=== PATIENT | female | born 1970 | race Caucasian/White ===

== ENCOUNTER 2019-01-23 17:02 | Emergency (ER) | payer SELFPAY ==
[~2019-01-23] VITALS: Ht 165.1 cm; Wt 49.9 kg
--- NOTE | 2019-01-23 17:20 | ED Dyspnea ---
General Stated Complaint: SHAKING,SOB Source of Information: Patient, RN Notes Reviewed Exam Limitations: No Limitations (ZEKE MARIE DO) History of Present Illness Date Seen by Provider: January 23, 2019 Time Seen by Provider: 17:20 (ZEKE MARIE DO) Initial Comments Patient is a 48-year-old female presenting by private vehicle. She was at home and feeling anxious and short of breath. She had EMS come to her house earlier in the evaluated her for shortness of breath but at that time and refused to come. 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 However her boyfriend when they have brought her to the emergency department to be evaluated because she continued to complain of shortness of breath. She admits to drinking alcohol today and feeling anxious. She denies any drug use. She knows that she smokes a lot of tobacco. She does have a history of asthma as well as the anxiety. She felt like she couldn't take a deep breath. She denies any fever or chills. She has not had any nausea or vomiting. (MANDA ALEXIS MD) Allergies and Home Medications Allergies Coded Allergies: tramadol (Unverified Adverse Reaction, Unknown, 01/23/19) Uncoded Allergies: CONTRAST DYE (Adverse Reaction, Unknown, 01/23/19) ERYTHROMYCIN (Adverse Reaction, Unknown, 01/23/19) SULFA (Adverse Reaction, Unknown, 01/23/19) Patient Home Medication List Home Medication List Reviewed: Yes (MANDA ALEXIS MD) Review of Systems Review of Systems Constitutional: No chills, No diaphoresis, No fever EENTM: No ear discharge, No blurred vision, No nose congestion Respiratory: cough (smoker's cough); No dyspnea on exertion, No phlegm; short of breath; No stridor, No wheezing Cardiovascular: chest pain (tightness); No edema, No palpitations, No syncope Gastrointestinal: no symptoms reported; No abdominal pain, No nausea, No vomiting Genitourinary: no symptoms reported; No dysuria, No frequency Musculoskeletal: no symptoms reported Skin: no symptoms reported Psychiatric/Neurological: Anxiety Endocrine: No Symptoms Reported Hematologic/Lymphatic: No Symptoms Reported (MANDA ALEXIS MD) Past Oaikftl-Slbyoe-Mvzjxc Hx Past Med/Social Hx: Reviewed Nursing Past Med/Soc Hx (MANDA ALEXIS MD) Patient Social History Recent Foreign Travel: No Contact w/Someone Who Travel: No (ZEKE MARIE DO) Past Medical History Asthma Psychosocial: Yes (alcoholism) Anxiety (MANDA ALEXIS MD) Physical Exam Vital Signs Vital Signs - First Documented 01/23/19 17:08 Temp 98.0 Pulse 97 Resp 16 B/P (MAP) 136/93 (107) Pulse Ox 100 O2 Delivery Room Air (MANDA ALEXIS MD) Vital Signs Capillary Refill : (ZEKE MARIE DO) Height, Weight, BMI Height: '" Weight: lbs. oz. kg; BMI Method: (ZEKE MRAIE DO) General Appearance: No Apparent Distress, Thin, Other (appears older than stated age) HEENT: PERRL/EOMI, Other (poor dentition) Neck: Full Range of Motion, Normal Inspection, Non Tender, Supple Respiratory: Chest Non Tender, Lungs Clear, Normal Breath Sounds, No Accessory Muscle Use, No Respiratory Distress Cardiovascular: Regular Rate, Rhythm, Normal Peripheral Pulses Gastrointestinal: Normal Bowel Sounds, No Pulsatile Mass, Non Tender, Soft Rectal: Deferred Extremity: Normal Capillary Refill, Non Tender, No Calf Tenderness Neurologic/Psychiatric: Alert, Oriented x3 Skin: Normal Color, Warm/Dry (MANDA ALEXIS MD) Progress/Results/Core Measures Results/Orders Lab Results Laboratory Tests Test 01/23/19 17:20 01/23/19 17:52 Range/Units White Blood Count 6.7 4.3-11.0 10^3/uL Red Blood Count 3.11 L 4.35-5.85 10^6/uL Hemoglobin 10.2 L 11.5-16.0 G/DL Hematocrit 31 L 35-52 % Mean Corpuscular Volume 99 80-99 FL Mean Corpuscular Hemoglobin 33 25-34 PG Mean Corpuscular Hemoglobin Concent 33 32-36 G/DL Red Cell Distribution Width 13.7 10.0-14.5 % Platelet Count 133 130-400 10^3/uL Mean Platelet Volume 11.2 H 7.4-10.4 FL Neutrophils (%) (Auto) 57 42-75 % Lymphocytes (%) (Auto) 22 12-44 % Monocytes (%) (Auto) 17 H 0-12 % Eosinophils (%) (Auto) 2 0-10 % Basophils (%) (Auto) 1 0-10 % Neutrophils # (Auto) 3.8 1.8-7.8 X 10^3 Lymphocytes # (Auto) 1.5 1.0-4.0 X 10^3 Monocytes # (Auto) 1.2 H 0.0-1.0 X 10^3 Eosinophils # (Auto) 0.1 0.0-0.3 10^3/uL Basophils # (Auto) 0.1 0.0-0.1 10^3/uL Sodium Level 138 135-145 MMOL/L Potassium Level 4.1 3.6-5.0 MMOL/L Chloride Level 94 L 98-107 MMOL/L Carbon Dioxide Level 17 L 21-32 MMOL/L Anion Gap 27 H 5-14 MMOL/L Blood Urea Nitrogen 13 7-18 MG/DL Creatinine 1.09 0.60-1.30 MG/DL Estimat Glomerular Filtration Rate 53 BUN/Creatinine Ratio 12 Glucose Level 76 70-105 MG/DL Calcium Level 9.6 8.5-10.1 MG/DL Corrected Calcium 8.5-10.1 MG/DL Magnesium Level 1.7 L 1.8-2.4 MG/DL Total Bilirubin 1.5 H 0.1-1.0 MG/DL Aspartate Amino Transf (AST/SGOT) 72 H 5-34 U/L Alanine Aminotransferase (ALT/SGPT) 23 0-55 U/L Alkaline Phosphatase 79 40-136 U/L Troponin T 15 H <=10 NG/L Pro-B-Type Natriuretic Peptide 167.4 H <75.0 PG/ML Total Protein 7.8 6.4-8.2 GM/DL Albumin 4.7 H 3.2-4.5 GM/DL Lipase 36 8-78 U/L Serum Alcohol 288 H <10 MG/DL Smear Scan YES Urine Color DARK YELLOW Urine Clarity SL CLOUDY Urine pH 6.0 5-9 Urine Specific [place] 1.015 L 1.016-1.022 Urine Protein TRACE NEGATIVE Urine Glucose (UA) NEGATIVE NEGATIVE Urine Ketones 1+ H NEGATIVE Urine Nitrite NEGATIVE NEGATIVE Urine Bilirubin 1+ H NEGATIVE Urine Urobilinogen 4.0 NORMAL MG/DL Urine Leukocyte Esterase 2+ H NEGATIVE Urine RBC (Auto) NEGATIVE NEGATIVE Urine RBC NONE /HPF Urine WBC 25-50 H /HPF Urine Squamous Epithelial Cells 10-25 H /HPF Urine Crystals NONE /LPF Urine Bacteria LARGE H /HPF Urine Casts NONE /LPF Urine Mucus NEGATIVE /LPF Urine Culture Indicated YES Urine Opiates Screen NEGATIVE NEGATIVE Urine Oxycodone Screen NEGATIVE NEGATIVE Urine Methadone Screen NEGATIVE NEGATIVE Urine Propoxyphene Screen NEGATIVE NEGATIVE Urine Barbiturates Screen NEGATIVE NEGATIVE Ur Tricyclic Antidepressants Screen NEGATIVE NEGATIVE Urine Phencyclidine Screen NEGATIVE NEGATIVE Urine Amphetamines Screen POSITIVE H NEGATIVE Urine Methamphetamines Screen POSITIVE H NEGATIVE Urine Benzodiazepines Screen POSITIVE H NEGATIVE Urine Cocaine Screen NEGATIVE NEGATIVE Urine Cannabinoids Screen NEGATIVE NEGATIVE (MANDA ALEXIS MD) My Orders Orders - MANDA ALEXIS MD Thiamine Injection (Vitamin B-1 Injectio (01/23/19 18:13) (MANDA ALEXIS MD) Medications Given in ED Current Medications Medications Dose Ordered Sig/Artemio Route Start Time Stop Time Status Last Admin Dose Admin Lorazepam 1 mg ONCE ONCE IVP 01/23/19 17:45 01/23/19 17:46 DC 01/23/19 18:23 1 MG Sodium Chloride 1,000 ml ONCE ONCE IV 01/23/19 18:15 01/23/19 18:36 DC 01/23/19 18:23 1,000 ML Thiamine HCl 100 mg ONCE ONCE IV 01/23/19 18:15 01/23/19 19:09 DC 01/23/19 18:23 100 MG (MANDA ALEXIS MD) Vital Signs/I&O 01/23/19 17:08 Temp 98.0 Pulse 97 Resp 16 B/P (MAP) 136/93 (107) Pulse Ox 100 O2 Delivery Room Air (MANDA ALEXIS MD) Progress Progress Note #1: Time: 18:00 Progress Note I assumed care of the patient from Dr. Marie at shift change pending labs and CXR. She was getting IVF and a 1 mg IV dose of Ativan for her anxiety and sensation of shortness of breath. She has been saturating 100% on room air. Progress Note #2: Time: 19:30 Progress Note Labs all came back with stable CBC. Her chemistry did not show any evidence of acute cardiac disease. Her alcohol level was elevated to 0.288. Her urine drug screen was positive for methamphetamines and benzodiazepines. She had leukocyte esterase and bacteria in her urine but there are also epithelial cells. She denied any dysuria or evidence of a urinary tract infection so will defer treatment until culture results come back. In terms of the methamphetamines in her system she stated that she had been smoking cigarettes from a friend that rolls her own cigarettes. She states that she thinks that's where the methamphetamines had gotten into her system because she denies using them herself. Advised to avoid smoking cigarettes, especially from that friend, in the future. Counseled to follow up with [facility] mental [facility] about getting help to avoid drugs and alcohol. Continue on her regular medications. His not to drink alcohol or use drugs especially when she was responsible for her grandchildren (MANDA ALEXIS MD) Initial ECG Impression Date: January 23, 2019 Initial ECG Impression Time: 17:14 Initial ECG Rate: 94 Initial ECG Rhythm: Normal Sinus Comment Sinus rhythm with a heart rate of 94 bpm. NH interval 174 ms. QT interval of 422 ms and a QT corrected interval of 528 ms for a prolonged QT interval. No ST elevation. No prior tracing for comparison. (MANDA ALEXIS MD) Diagnostic Imaging Diagonstic Imaging: Xray Plain Films/CT/US/NM/MRI: chest Comments NAME: SYED LOGAN [facility] REC#: [id number] PT STATUS: REG ER : 1970 PHYSICIAN: ZEKE MARIE DO ADMIT DATE: 01/23/19/ER FS Signed Date of Exam:01/23/19 CHEST 1 VIEW AP/PA ONLY CHEST 1 VIEW AP/PA ONLY Indication: Shortness of breath Comparison: None available. Findings: No focal airspace disease in the visualized lungs. Calcified left midlung zone pulmonary nodule is compatible with old granulomatous infection. Please note that the posterior lower lobes are poorly evaluated by portable radiography. No pleural effusion or pneumothorax. Normal cardiomediastinal silhouette. Impression: No acute cardiopulmonary process by portable radiography. Dictated by: Dictated on workstation # [id number] Dict: 01/23/191813 Trans: 01/23/191814 [facility] [id number] Interpreted by: ARPIT RESENDEZ MD Electronically signed by: ARPIT RESENDEZ MD 01/23/191814 Reviewed: Reviewed by Me (and radiologist reading) (MANDA ALEXIS MD) Departure Impression Primary Impression: Anxiety Additional Impressions: Methamphetamine abuse Alcohol intoxication Qualified Codes: F10.920 - Alcohol use, unspecified with intoxication, uncomplicated Shortness of breath Disposition: 01 HOME, SELF-CARE Condition: Stable Departure-Patient Inst. Decision time for Depature: 19:14 (MANDA ALEXIS MD) Referrals: NO,LOCAL PHYSICIAN (PCP) Primary Care Physician Patient Instructions: Alcohol Abuse and Alcoholism (DC), Anxiety, Adult (DC), Methamphetamine, Polysubstance Abuse (DC) Add. Discharge Instructions: Do not use drugs such as methamphetamines and do not drink alcohol Follow up with clinic for continued concerns. See [facility] or [facility] for resources to help with anxiety, drug abuse and alcohol abuse. ZEKE MARIE DO January 23, 2019 17:20 MANDA ALEXIS MD January 23, 2019 18:38
[2019-01-23] MEDS ORDERED: LORazepam INJ 2 MG/ML (ATIVAN) VIAL IVP ONE (17:45)
[2019-01-23 17:53] LABS: HEMATOCRIT 31 % (35-52); HEMOGLOBIN 10.2 G/DL (11.5-16.0); MEAN CORPUSCULAR HEMOGLOBIN 33 PG (25-34); MEAN CORPUSCULAR HGB CONC 33 G/DL (32-36); MEAN CORPUSCULAR VOLUME 99 FL (80-99); MEAN PLATELET VOLUME 11.2 FL (7.4-10.4); PLATELET COUNT 133 10^3/uL (130-400); RED CELL DISTRIBUTION WIDTH 13.7 % (10.0-14.5); WHITE BLOOD COUNT 6.7 10^3/uL (4.3-11.0)
[2019-01-23 17:54] LABS: BASOPHILS # (AUTO) 0.1 10^3/uL (0.0-0.1); BASOPHILS % (AUTO) 1 % (0-10); EOSINOPHILS # (AUTO) 0.1 10^3/uL (0.0-0.3); EOSINOPHILS % (AUTO) 2 % (0-10); LYMPHOCYTES # (AUTO) 1.5 X 10^3 (1.0-4.0); LYMPHOCYTES % (AUTO) 22 % (12-44); MONOCYTES # (AUTO) 1.2 X 10^3 (0.0-1.0); MONOCYTES % (AUTO) 17 % (0-12); NEUTROPHILS # (AUTO) 3.8 X 10^3 (1.8-7.8); NEUTROPHILS % (AUTO) 57 % (42-75); SMEAR SCAN COMMENT YES
[2019-01-23 17:57] LABS: CHLORIDE 94 MMOL/L (98-107); POTASSIUM 4.1 MMOL/L (3.6-5.0); SODIUM 138 MMOL/L (135-145)
[2019-01-23 17:58] LABS: ALKALINE PHOSPHATASE 79 U/L (40-136); BILIRUBIN,TOTAL 1.5 MG/DL (0.1-1.0); BUN/CREATININE RATIO 12; CALCIUM 9.6 MG/DL (8.5-10.1); CARBON DIOXIDE 17 MMOL/L (21-32); CREATININE SERUM 1.09 MG/DL (0.60-1.30); GFR ESTIMATED 53; GLUCOSE 76 MG/DL (70-105); MAGNESIUM 1.7 MG/DL (1.8-2.4)
[2019-01-23 17:59] LABS: ALANINE AMINOTRANSFERASE 23 U/L (0-55); ALBUMIN 4.7 GM/DL (3.2-4.5); TOTAL PROTEIN 7.8 GM/DL (6.4-8.2)
[2019-01-23 18:00] LABS: LIPASE 36 U/L (8-78)
[2019-01-23 18:13] LABS: AMPHETAMINE SCREEN, URINE POSITIVE (NEGATIVE); BENZODIAZEPINES SCREEN URINE POSITIVE (NEGATIVE); COCAINE SCREEN URINE NEGATIVE (NEGATIVE); METHAMPHETAMINE SCREEN URINE S POSITIVE (NEGATIVE)
[2019-01-23] MEDS ORDERED: THIAMINE 100 MG/ML 2 ML (VITAMIN B-1) VIAL ONE (18:13)
[2019-01-23] MEDS ORDERED: NS IV 1000 ML 1,000 ML ONE (18:13)
[2019-01-23 18:14] LABS: BARBITURATE SCREEN URINE NEGATIVE (NEGATIVE); CANNABINOID SCREEN, URINE NEGATIVE (NEGATIVE); CLARITY,URINE SL CLOUDY; COLOR,URINE DARK YELLOW; GLUCOSE, URINE (UA) NEGATIVE (NEGATIVE); KETONES,URINE 1+ (NEGATIVE); METHADONE STAT NEGATIVE (NEGATIVE); NITRITE,URINE NEGATIVE (NEGATIVE); OPIATE SCREEN URINE NEGATIVE (NEGATIVE); OXYCODONE STAT NEGATIVE (NEGATIVE); PROPOXYPHENE STAT NEGATIVE (NEGATIVE); PROTEIN,URINE TRACE (NEGATIVE); TRICYCLIC ANTIDEPRESSANTS SCRE NEGATIVE (NEGATIVE)
[2019-01-23 18:15] LABS: BACTERIA,URINE LARGE /HPF; BILIRUBIN,URINE 1+ (NEGATIVE); LEUKOCYTE ESTERASE ,URINE 2+ (NEGATIVE); WBC,URINE 25-50 /HPF
[2019-01-23] MEDS ORDERED: NS 1000 ML IV BAG IV ONE (18:15)
[2019-01-23] MEDS ORDERED: THIAMINE 100 MG/ML 2 ML (VITAMIN B-1) VIAL IV ONE (18:15)
--- NOTE | 2019-01-23 18:17 | Diagnostic Imaging Report ---
CHEST 1 VIEW AP/PA ONLY Indication: Shortness of breath Comparison: None available. Findings: No focal airspace disease in the visualized lungs. Calcified left midlung zone pulmonary nodule is compatible with old granulomatous infection. Please note that the posterior lower lobes are poorly evaluated by portable radiography. No pleural effusion or pneumothorax. Normal cardiomediastinal silhouette. Impression: No acute cardiopulmonary process by portable radiography. Dictated by: Dictated on workstation # [id number]
--- NOTE | 2019-01-23 18:23 | NUR ---
PT GIVEN MEDS PER eMAR. PT THANKING RN FOR GETTING AN ANTI-ANXIETY MED. EXPLAINED THE DR WOULD FIRST LIKE TO CHECK PT'S CARDIAC/MEDICAL WORK-UP AND A CONCERN FOR SMELL OF ETOH TO CHECK BEFORE ADMINISTERING MEDS THAT COULD BE ENHANCED OR ALTER HER MENTATION. PT ASKS HER ETOH LEVEL AND REPORTED TO HER. PT ASKS IF THE LEVEL 288 IS HIGH? PT REPORTS SHE IS SO CONCERNED TO NOT HAVE HER SON KNOW ABOUT HER DRINKING SHE IS BABYSITTING 5 GRANDKIDS. PT STATES SHE DIDN'T CALL 911 BUT HER BOYFRIEND DID SHE REALLY THOUGHT SHE COULD NOT BREATHE COMM[facility]ITY CENTER DIRECTOR. SHE HAS A DGT IN LAW AT WORK AND THE SON IS IN [employer] WORKING. SHE WANTED TO WAIT TILL THEY WERE HOME BEFORE COMING BUT FELT MORE AND MORE LIKE SHE COULD NOT BREATHE. PT TEACHING ABOUT THE POTENTIAL FOR ADVERSE EVENTS/EFFECTS OF MIXING MEDS WITH ETOH (POLYSUBSTANCE).
[2019-01-23 19:43] VITALS: BP 109/73
== END 2019-01-23 19:43 | disposition home or self-care (01) ==
LOC: ER FS 17:04
DX: F41.9 Anxiety disorder, unspecified (principal); F15.10 Other stimulant abuse, uncomplicated; F10.229 Alcohol dependence with intoxication, unspecified; J45.909 Unspecified asthma, uncomplicated; F17.200 Nicotine dependence, unspecified, uncomplicated; Z88.6 Allergy status to analgesic agent; Z91.041 Radiographic dye allergy status; Z88.2 Allergy status to sulfonamides
CPT/HCPCS: 36415; 71045; 80053; 80306; 80320; 81000; 83690; 83735; 83880; 84484; 85025; 87088

== ENCOUNTER 2019-03-08 07:23 | Emergency (ER) | payer SELFPAY ==
[~2019-03-08] VITALS: Ht 165.1 cm; Wt 46.3 kg
--- OUTSIDE RECORDS SUMMARY | 2019-03-08 07:27 | XMS REPORT | Continuity of Care Document ---
Author Organization Unknown Address Unknown Allergies Active Description Code Type Severity Reaction Onset Reported/Identified Relationship to Patient Clinical Status Yes CONTRAST DYE CONTRAST DYE Unknown N/A 01/23/2019 Yes ERYTHROMYCIN ERYTHROMYCIN Unknown N/A 01/23/2019 Yes SULFA SULFA Unknown N/A 01/23/2019 Yes tramadol [id number] Drug Allergy Unknown N/A 01/23/2019 Medications There is no data. Problems There is no data. Procedures There is no data. Results Test Result Range Complete blood count (CBC) with automated white blood cell (WBC) differential - 01/23/19 17:20 Blood leukocytes automated count (number/volume) 6.7 10*3/uL 4.3-11.0 Blood erythrocytes automated count (number/volume) 3.11 10*6/uL 4.35-5.85 Venous blood hemoglobin measurement (mass/volume) 10.2 g/dL 11.5-16.0 Blood hematocrit (volume fraction) 31 % 35-52 Automated erythrocyte mean corpuscular volume 99 [foz_us] 80-99 Automated erythrocyte mean corpuscular hemoglobin (mass per erythrocyte) 33 pg 25-34 Automated erythrocyte mean corpuscular hemoglobin concentration measurement (mass/volume) 33 g/dL 32-36 Automated erythrocyte distribution width ratio 13.7 % 10.0- 14.5 Automated blood platelet count (count/volume) 133 10*3/uL 130-400 Automated blood platelet mean volume measurement 11.2 [foz_us] 7.4-10.4 Automated blood neutrophils/100 leukocytes 57 % 42-75 Automated blood lymphocytes/100 leukocytes 22 % 12-44 Blood monocytes/100 leukocytes 17 % 0-12 Automated blood eosinophils/100 leukocytes 2 % 0-10 Automated blood basophils/100 leukocytes 1 % 0-10 Blood neutrophils automated count (number/volume) 3.8 10*3 1.8-7.8 Blood lymphocytes automated count (number/volume) 1.5 10*3 1.0-4.0 Blood monocytes automated count (number/volume) 1.2 10*3 0.0- 1.0 Automated eosinophil count 0.1 10*3/uL 0.0-0.3 Automated blood basophil count (count/volume) 0.1 10*3/uL 0.0-0.1 Blood blood smear finding identification by light microscopy YES NR Comprehensive metabolic panel - 01/23/19 17:20 Serum or plasma sodium measurement (moles/volume) 138 mmol/L 135-145 Serum or plasma potassium measurement (moles/volume) 4.1 mmol/L 3.6-5.0 Serum or plasma chloride measurement (moles/volume) 94 mmol/L 98-107 Carbon dioxide 17 mmol/L 21-32 Serum or plasma anion gap determination (moles/volume) 27 mmol/L 5-14 Serum or plasma urea nitrogen measurement (mass/volume) 13 mg/dL 7-18 Serum or plasma creatinine measurement (mass/volume) 1.09 mg/dL 0.60-1.30 Serum or plasma urea nitrogen/creatinine mass ratio 12 NR Serum or plasma creatinine measurement with calculation of estimated glomerular filtration rate 53 [facility] Serum or plasma glucose measurement (mass/volume) 76 mg/dL 70-105 Serum or plasma calcium measurement (mass/volume) 9.6 mg/dL 8.5-10.1 Serum or plasma total bilirubin measurement (mass/volume) 1.5 mg/dL 0.1-1.0 Serum or plasma alkaline phosphatase measurement (enzymatic activity/volume) 79 U/L 40-136 Serum or plasma aspartate aminotransferase measurement (enzymatic activity/volume) 72 U/L 5-34 Serum or plasma alanine aminotransferase measurement (enzymatic activity/volume) 23 U/L 0-55 Serum or plasma protein measurement (mass/volume) 7.8 g/dL 6.4-8.2 Serum or plasma albumin measurement (mass/volume) 4.7 g/dL 3.2-4.5 Magnesium - 01/23/19 17:20 Magnesium 1.7 mg/dL 1.8-2.4 TROPONIN T - 01/23/19 17:20 TROPONIN T 15 % <=10 PROBNP FS - 01/23/19 17:20 PROBNP FS 167.4 pg/mL <75.0 Lipase - 01/23/19 17:20 Lipase 36 U/L 8-78 Serum or plasma ethanol measurement (mass/volume) - 01/23/19 17:20 Serum or plasma ethanol measurement (mass/volume) 288 mg/dL <10 Urine drug screening test - 01/23/19 17:52 Urine phencyclidine detection by screening method NEGATIVE NEGATIVE Urine benzodiazepines detection by screening method POSITIVE NEGATIVE Urine cocaine detection NEGATIVE NEGATIVE Urine amphetamines detection by screening method POSITIVE NEGATIVE Urine methamphetamine detection by screening method POSITIVE NEGATIVE Urine cannabinoids detection by screening method NEGATIVE NEGATIVE Urine opiates detection by screening method NEGATIVE NEGATIVE Urine barbiturates detection NEGATIVE NEGATIVE Screening urine tricyclic antidepressants detection NEGATIVE NEGATIVE Urine methadone detection by screening method NEGATIVE NEGATIVE Urine oxycodone detection NEGATIVE NEGATIVE Urine propoxyphene detection NEGATIVE NEGATIVE Complete urinalysis with reflex to culture - 01/23/19 17:52 Urine color determination DARK YELLOW NRG Urine clarity determination SL CLOUDY NRG Urine pH measurement by test strip 6.0 5-9 Specific gravity of urine by test strip 1.015 1.016-1.022 Urine protein assay by test strip, semi-quantitative TRACE NEGATIVE Urine glucose detection by automated test strip NEGATIVE NEGATIVE Erythrocytes detection in urine sediment by light microscopy NEGATIVE NEGATIVE Urine ketones detection by automated test strip 1+ NEGATIVE Urine nitrite detection by test strip NEGATIVE NEGATIVE Urine total bilirubin detection by test strip 1+ NEGATIVE Urine urobilinogen measurement by automated test strip (mass/volume) 4.0 mg/dL NORMAL Urine leukocyte esterase detection by dipstick 2+ NEGATIVE Automated urine sediment erythrocyte count by microscopy (number/high power field) NONE NRG Automated urine sediment leukocyte count by microscopy (number/high power field) [HPF] NRG Bacteria detection in urine sediment by light microscopy LARGE NRG Squamous epithelial cells detection in urine sediment by light microscopy 10-25 NRG Crystals detection in urine sediment by light microscopy NONE NRG Casts detection in urine sediment by light microscopy NONE NRG Mucus detection in urine sediment by light microscopy NEGATIVE NRG Complete urinalysis with reflex to culture YES NRG Bacterial urine culture - 01/23/19 17:52 Bacterial urine culture 3 OR MORE NRG COLONY COUNT >100,000/ML NRG FTX;REPORTABLE GRAM POSITIVES, SUGGESTING PROBABLE NRG FREE TEXT ENTRY 2 COLLECTION CONTAMINATION WITH SKIN NRG FREE TEXT ENTRY 3 JOI. NO SUSCEPTIBILITY PERFORMED. NRG Encounters ACCT No. Visit Date/Time Discharge Status Pt. Type Provider Facility Loc./Unit Complaint [id number] 01/23/2019 17:04:00 01/23/2019 19:43:00 DIS Emergency REUBEN GALINDO, MANDA [facility] ER FS SHAKING,SOB
[2019-03-08] MEDS ORDERED: FAMOTIDINE 20MG/2ML IV (PEPCID) IV STA (07:41)
--- NOTE | 2019-03-08 07:48 | ED Abdominal Pain ---
General Chief Complaint: Abdominal/GI Problems Stated Complaint: ABD PAIN,CHEST PAIN Nursing Triage Note: Patient c/o left sided abdominal pain, left sided chest pain, and bilateral lower back pain. States that the pain began about 3 days ago. Sepsis Screen: No Definite Risk History of Present Illness Date Seen by Provider: Mar 08, 2019 Time Seen by Provider: 07:35 Initial Comments 48-year-old female presents with abdominal pain. She states that she's been h aving it for 3 days. That is in her left upper and lower abdomen kind of wraps around her bilateral lower back she also complains of some occasional pain that goes up to her left side of her chest. She reports she has issues with constipation and yesterday he only has a very hard pebbly-like stool. She reports that she's been having issues with constipation on and off for a couple weeks. She denies any fever, chills, nausea or vomiting. She denies any shortness of breath or diaphoresis. Allergies and Home Medications Allergies Coded Allergies: tramadol (Unverified Adverse Reaction, Unknown, 01/23/19) Uncoded Allergies: CONTRAST DYE (Adverse Reaction, Unknown, 01/23/19) ERYTHROMYCIN (Adverse Reaction, Unknown, 01/23/19) SULFA (Adverse Reaction, Unknown, 01/23/19) Home Medications Ondansetron 4 Mg Tab.rapdis, 4 MG PO Q6H PRN for NAUSEA/VOMITING-1ST LINE Prescribed by: BRENNAN GOVEA on 03/08/19 0939 [morphine ] , 15 MG PO Q12H PRN for pain Prescribed by: BRENNAN GOVEA on 03/08/19 0939 Patient Home Medication List Home Medication List Reviewed: Yes Review of Systems Review of Systems Constitutional: No chills, No fever EENTM: No Symptoms Reported Respiratory: Denies Cough, Denies Shortness of Air Cardiovascular: See HPI; Denies Irregular Heart Rate, Denies Lightheadedness Gastrointestinal: Denies Abdomen Distended; Abdominal Pain, Constipated; Denies Diarrhea, Denies Nausea Genitourinary: No Symptoms Reported Musculoskeletal: see HPI Skin: no symptoms reported Psychiatric/Neurological: No Symptoms Reported Past Pqqgpqs-Jmfvvv-Uuboft Hx Past Med/Social Hx: Reviewed Nursing Past Med/Soc Hx Patient Social History Alcohol Beverage of Choice: Beer Type Used: Cigarettes Recent Foreign Travel: No Contact w/Someone Who Travel: No Recent Infectious Disease Expo: No Recent Hopitalizations: No Seasonal Allergies Seasonal Allergies: No Past Medical History Surgeries: Yes (RHINOPLASTY) Tubal Ligation Respiratory: Yes (TOBACCOISM) Asthma Cardiac: Yes Hypertension 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 oz. 46.973493pi; BMI Method:Stated General Appearance: WD/WN, no apparent distress HEENT: PERRL/EOMI, normal ENT inspection Neck: non-tender, full range of motion Respiratory: chest non-tender, lungs clear, no respiratory distress Cardiovascular: normal peripheral pulses, regular rate, rhythm, no edema Gastrointestinal: No abnormal bowel sounds, No distended, No guarding, No rebound; tenderness (Left abdomen both upper and lower quadrant) Extremities: normal range of motion, non-tender Back: normal inspection, no vertebral tenderness, CVA tenderness (R) (Mild), CVA tenderness (L) (Mild) Progress/Results/Core Measures Results/Orders Lab Results Laboratory Tests Test 03/08/19 07:35 03/08/19 08:18 Range/Units White Blood Count 5.1 4.3-11.0 10^3/uL Red Blood Count 3.65 L 4.35-5.85 10^6/uL Hemoglobin 12.0 11.5-16.0 G/DL Hematocrit 36 35-52 % Mean Corpuscular Volume 99 80-99 FL Mean Corpuscular Hemoglobin 33 25-34 PG Mean Corpuscular Hemoglobin Concent 33 32-36 G/DL Red Cell Distribution Width 12.9 10.0-14.5 % Platelet Count 132 130-400 10^3/uL Mean Platelet Volume 10.0 7.4-10.4 FL Neutrophils (%) (Auto) 59 42-75 % Lymphocytes (%) (Auto) 23 12-44 % Monocytes (%) (Auto) 15 H 0-12 % Eosinophils (%) (Auto) 3 0-10 % Basophils (%) (Auto) 1 0-10 % Neutrophils # (Auto) 3.0 1.8-7.8 X 10^3 Lymphocytes # (Auto) 1.2 1.0-4.0 X 10^3 Monocytes # (Auto) 0.8 0.0-1.0 X 10^3 Eosinophils # (Auto) 0.1 0.0-0.3 10^3/uL Basophils # (Auto) 0.0 0.0-0.1 10^3/uL Sodium Level 142 135-145 MMOL/L Potassium Level 3.7 3.6-5.0 MMOL/L Chloride Level 98 98-107 MMOL/L Carbon Dioxide Level 26 21-32 MMOL/L Anion Gap 18 H 5-14 MMOL/L Blood Urea Nitrogen 7 7-18 MG/DL Creatinine 0.64 0.60-1.30 MG/DL Estimat Glomerular Filtration Rate > 60 BUN/Creatinine Ratio 11 Glucose Level 95 70-105 MG/DL Calcium Level 9.3 8.5-10.1 MG/DL Corrected Calcium 9.1 8.5-10.1 MG/DL Total Bilirubin 0.9 0.1-1.0 MG/DL Aspartate Amino Transf (AST/SGOT) 42 H 5-34 U/L Alanine Aminotransferase (ALT/SGPT) 17 0-55 U/L Alkaline Phosphatase 100 40-136 U/L Total Protein 7.7 6.4-8.2 GM/DL Albumin 4.3 3.2-4.5 GM/DL Lipase 920 H 8-78 U/L Serum Alcohol 217 H <10 MG/DL Urine Color DARK YELLOW Urine Clarity SLT CLOUDY Urine pH 6.0 5-9 Urine Specific [place] 1.020 1.016-1.022 Urine Protein 1+ H NEGATIVE Urine Glucose (UA) NEGATIVE NEGATIVE Urine Ketones TRACE H NEGATIVE Urine Nitrite NEGATIVE NEGATIVE Urine Bilirubin 1+ H NEGATIVE Urine Urobilinogen 1.0 NORMAL MG/DL Urine Leukocyte Esterase TRACE H NEGATIVE Urine RBC (Auto) NEGATIVE NEGATIVE Urine RBC NONE /HPF Urine WBC 5-10 H /HPF Urine Squamous Epithelial Cells 10-25 H /HPF Urine Crystals NONE /LPF Urine Bacteria LARGE H /HPF Urine Casts PRESENT /LPF Urine Hyaline Casts 0-2 H /LPF Urine Mucus SMALL H /LPF Urine Culture Indicated YES My Orders Orders - BRENNAN GOVEA DO Comprehensive Metabolic Panel (03/08/19 07:41) Lipase (03/08/19 07:41) Ua Culture If Indicated (03/08/19 07:41) Ed Iv/Invasive Line Start (03/08/19 07:41) Acute Abd Series (03/08/19 07:41) Cbc With Automated Diff (03/08/19 07:41) Famotidine Injection (Pepcid Injection) (03/08/19 07:41) Ekg Tracing (03/08/19 07:30) Ns Iv 1000 Ml (Sodium Chloride 0.9%) (03/08/19 08:34) Morphine Injection (Morphine Injection (03/08/19 08:45) Urine Culture (03/08/19 08:18) Ct Abdomen/Pelvis Wo (03/08/19 08:34) Alcohol (03/08/19 08:41) Medications Given in ED Current Medications Medications Dose Ordered Sig/Artemio Route Start Time Stop Time Status Last Admin Dose Admin Morphine Sulfate 2 mg ONCE ONCE IVP 03/08/19 08:45 03/08/19 08:46 DC 03/08/19 08:49 2 MG Vital Signs/I&O 03/08/19 07:26 Temp 98.9 Pulse 110 Resp 18 B/P (MAP) 157/97 (117) Pulse Ox 100 O2 Delivery Room Air Blood Pressure Mean: 117 Progress Progress Note : Progress Note I reviewed labs and imaging with patient. Patient admits to drinking alcohol daily. She also reports that she has a history of pancreatitis but didn't think that this was it. Patient was offered admission versus a trial of outpatient therapy. Patient reports she would rather try to go home. She'll use a clear liquid diet for 24-48 hours. She will then advance as tolerated. She should return to the ER or her primary as needed or if symptoms worsen. She will be discharged home in stable condition. Initial ECG Impression Date: Mar 08, 2019 Initial ECG Impression Time: 07:30 Initial ECG Rate: 107 Initial ECG Rhythm: S.Tach Initial ECG Intervals: QT (510 ms ) Initial ECG Intervals Sinus tach, prolonged QT Departure Impression Primary Impression: Pancreatitis Qualified Codes: K85.20 - Alcohol induced acute pancreatitis without necrosis or infection Disposition: 01 HOME, SELF-CARE Condition: Stable Departure-Patient Inst. Decision time for Depature: 09:34 Referrals: NO,LOCAL PHYSICIAN (PCP) Primary Care Physician Patient Instructions: Pancreatitis (DC) Add. Discharge Instructions: Clear liquid diet for the next 24-36 hours and then may slowly advance diet. Tylenol and ibuprofen as needed for pain. I do recommend you consider stopping alcohol use. All discharge instructions reviewed with patient and/or family. Voiced understanding. Scripts Ondansetron (Ondansetron Odt) 4 Mg Tab.rapdis 4 MG PO Q6H PRN for NAUSEA/VOMITING-1ST LINE, #20 TAB Prov: BRENNAN GOVEA DO 03/08/19 [morphine ] No Conflict Check 15 MG PO Q12H PRN for pain, #5 Prov: BRENNAN GOVEA DO 03/08/19 BRENNAN GOVEA DO Mar 08, 2019 07:48
[2019-03-08 07:50] LABS: HEMATOCRIT 36 % (35-52); MEAN CORPUSCULAR HEMOGLOBIN 33 PG (25-34); MEAN CORPUSCULAR HGB CONC 33 G/DL (32-36); MEAN CORPUSCULAR VOLUME 99 FL (80-99); PLATELET COUNT 132 10^3/uL (130-400); RED CELL DISTRIBUTION WIDTH 12.9 % (10.0-14.5); WHITE BLOOD COUNT 5.1 10^3/uL (4.3-11.0)
[2019-03-08 07:51] LABS: BASOPHILS % (AUTO) 1 % (0-10); EOSINOPHILS # (AUTO) 0.1 10^3/uL (0.0-0.3); EOSINOPHILS % (AUTO) 3 % (0-10); LYMPHOCYTES # (AUTO) 1.2 X 10^3 (1.0-4.0); LYMPHOCYTES % (AUTO) 23 % (12-44); MONOCYTES # (AUTO) 0.8 X 10^3 (0.0-1.0); MONOCYTES % (AUTO) 15 % (0-12); NEUTROPHILS % (AUTO) 59 % (42-75)
--- NOTE | 2019-03-08 08:12 | Diagnostic Imaging Report ---
INDICATION: Abdominal pain. Comparison made with prior examination 01/23/2019. FINDINGS: The heart size is normal. Mediastinum is unremarkable. There is calcified granuloma in the left midlung. There is no pleural effusion, pneumothorax or pneumonia. Mediastinum is unremarkable. The bowel gas pattern is nonspecific. There is no free air. There are no abnormal abdominal calcifications. There are surgical clips in the pelvis. IMPRESSION: No acute cardiopulmonary abnormality. Nonspecific bowel gas pattern. Dictated by: Dictated on workstation # [id number]
[2019-03-08 08:21] LABS: ALKALINE PHOSPHATASE 100 U/L (40-136); BILIRUBIN,TOTAL 0.9 MG/DL (0.1-1.0); BUN/CREATININE RATIO 11; CALCIUM 9.3 MG/DL (8.5-10.1); CARBON DIOXIDE 26 MMOL/L (21-32); CHLORIDE 98 MMOL/L (98-107); CREATININE SERUM 0.64 MG/DL (0.60-1.30); GFR ESTIMATED > 60; GLUCOSE 95 MG/DL (70-105); POTASSIUM 3.7 MMOL/L (3.6-5.0); SODIUM 142 MMOL/L (135-145)
[2019-03-08 08:22] LABS: ALANINE AMINOTRANSFERASE 17 U/L (0-55); ALBUMIN 4.3 GM/DL (3.2-4.5); LIPASE 920 U/L (8-78); TOTAL PROTEIN 7.7 GM/DL (6.4-8.2)
[2019-03-08] MEDS ORDERED: NS IV 1000 ML 1,000 ML IV SCH (08:34)
[2019-03-08 08:36] LABS: CLARITY,URINE SLT CLOUDY; COLOR,URINE DARK YELLOW; GLUCOSE, URINE (UA) NEGATIVE (NEGATIVE); KETONES,URINE TRACE (NEGATIVE); PROTEIN,URINE 1+ (NEGATIVE)
[2019-03-08 08:37] LABS: BACTERIA,URINE LARGE /HPF; BILIRUBIN,URINE 1+ (NEGATIVE); LEUKOCYTE ESTERASE ,URINE TRACE (NEGATIVE); NITRITE,URINE NEGATIVE (NEGATIVE)
[2019-03-08 08:38] LABS: HYALINE CASTS, URINE 0-2 /LPF
[2019-03-08] MEDS ORDERED: morphine INJ 10 MG/ML 1ML (SYR OR VIAL) IVP ONE (08:45)
--- NOTE | 2019-03-08 09:16 | Diagnostic Imaging Report ---
PROCEDURE: CT abdomen and pelvis without contrast. TECHNIQUE: Multiple contiguous axial images were obtained through the abdomen and pelvis without the use of intravenous contrast. Auto Exposure Controls were utilized during the CT exam to meet ALARA standards for radiation dose reduction. INDICATION: Abdominal pain. History of pancreatitis. FINDINGS: The heart size is normal. The lung bases are clear. The liver is normal in size without focal lesions. Gallbladder is unremarkable. There is no biliary ductal dilatation. Spleen is normal. There is some questionable minimal inflammatory change about the pancreas. The adrenal glands are unremarkable. The kidneys are normal in appearance. There is atherosclerotic calcification of the aorta. The bowel gas pattern is nonspecific. There is some mucosal thickening in the right colon. Some degree of colitis cannot be excluded. There is no free air. There is no ascites. There are no focal inflammatory changes. There is no pelvic mass, adenopathy or free fluid. The osseous structures are unremarkable. IMPRESSION: 1. Questionable mild inflammatory change about the pancreas. Mild pancreatitis cannot be excluded. 2. Mucosal thickening in the right colon and proximal transverse colon. Some degree of colitis cannot be excluded. Recommend clinical correlation. 3. Otherwise unremarkable noncontrast CT abdomen and pelvis. Dictated by: Dictated on workstation # [id number]
[2019-03-08] MEDS ORDERED: morphine PO (09:39)
[2019-03-08] MEDS ORDERED: ONDA4TAB11 PO (09:39)
[2019-03-08 10:00] VITALS: BP 154/96
== END 2019-03-08 10:00 | disposition home or self-care (01) ==
LOC: EDUNIT# 07:23 → ER FS 07:24
DX: K85.90 Acute pancreatitis without necrosis or infection, unspecified (principal); J45.909 Unspecified asthma, uncomplicated; I10 Essential (primary) hypertension; F41.9 Anxiety disorder, unspecified; F10.20 Alcohol dependence, uncomplicated; Y90.7 Blood alcohol level of 200-239 mg/100 ml; Z87.19 Personal history of other diseases of the digestive system; Z87.440 Personal history of urinary (tract) infections; Z88.5 Allergy status to narcotic agent; Z88.2 Allergy status to sulfonamides; Z88.1 Allergy status to other antibiotic agents; Z98.51 Tubal ligation status
CPT/HCPCS: 36415; 74022; 74176; 80053; 80320; 81000; 83690; 85025; 87088; 93005

== ENCOUNTER 2019-03-21 17:26 | Emergency (ER) | payer SELFPAY ==
[~2019-03-21] VITALS: Ht 165.1 cm; Wt 46.3 kg
[~2019-03-21 17:26] MED LIST: ONDA4TAB11 PO; morphine PO
--- NOTE | 2019-03-21 18:20 | ED Cough/URI ---
General Chief Complaint: Cough/Cold/Flu Symptoms Stated Complaint: SORE THROAT,COUGH,HEADACHE,CHEST PAIN Source: patient Exam Limitations: no limitations History of Present Illness Date Seen by Provider: Mar 21, 2019 Time Seen by Provider: 18:16 Initial Comments This 48-year-old white female presents with sore throat cough and nasal c ongestion and sinus drainage for the last several days. The patient has been taking [id number] medications without relief. Patient has had no associated nausea vomiting or diarrhea. She denies dysuria or frequency. She has had no flank pain. She denies severe headache photophobia or nuchal rigidity. All of the patient relates that she has erythromycin allergy she employs Zithromax without difficulty. Allergies and Home Medications Allergies Coded Allergies: tramadol (Unverified Adverse Reaction, Unknown, 01/23/19) Uncoded Allergies: CONTRAST DYE (Adverse Reaction, Unknown, 01/23/19) ERYTHROMYCIN (Adverse Reaction, Unknown, 01/23/19) SULFA (Adverse Reaction, Unknown, 01/23/19) Home Medications Ondansetron 4 Mg Tab.rapdis, 4 MG PO Q6H PRN for NAUSEA/VOMITING-1ST LINE Prescribed by: BRENNAN GOVEA on 03/08/19 0939 [morphine ] , 15 MG PO Q12H PRN for pain Prescribed by: BRENNAN GOVEA on 03/08/19 0939 Patient Home Medication List Home Medication List Reviewed: Yes Review of Systems Review of Systems Constitutional: No chills, No fever; malaise EENTM: see HPI, ear pain, nose congestion, throat pain Respiratory: see HPI, cough (greenish sputum) Cardiovascular: chest pain Gastrointestinal: No abdominal pain, No loss of appetite, No nausea, No vomiting Genitourinary: No dysuria, No frequency Musculoskeletal: No back pain Skin: No rash Psychiatric/Neurological: No Symptoms Reported Hematologic/Lymphatic: No Symptoms Reported Past Ueqdrru-Pkdqdc-Qgdscv Hx Past Med/Social Hx: Reviewed Nursing Past Med/Soc Hx Patient Social History Alcohol Beverage of Choice: Beer, Other Type Used: Cigarettes 2nd Hand Smoke Exposure: No Recent Foreign Travel: No Contact w/Someone Who Travel: No Recent Hopitalizations: No Seasonal Allergies Seasonal Allergies: No Past Medical History Surgeries: Yes (RHINOPLASTY) Tubal Ligation Respiratory: Yes (TOBACCOISM) Asthma, Chronic Bronchitis Cardiac: Yes Hypertension 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 oz. 46.241783jz; BMI Method:Stated General Appearance: WD/WN, no apparent distress Eyes: Bilateral Eye Normal Inspection HEENT: TMs normal, pharyngeal erythema Neck: full range of motion, normal inspection, lymphadenopathy (R), lymphadenopathy (L) Respiratory: lungs clear, normal breath sounds, no respiratory distress Cardiovascular: normal peripheral pulses, regular rate, rhythm Gastrointestinal: normal bowel sounds, non tender, soft Extremities: normal range of motion, non-tender, normal inspection Neurologic/Psychiatric: no motor/sensory deficits, alert, normal mood/affect Skin: normal color, warm/dry Progress/Results/Core Measures Suspected Sepsis SIRS Temperature: Pulse: Respiratory Rate: Laboratory Tests 03/21/19 18:25: White Blood Count 3.9L Blood Pressure / Mean: Laboratory Tests 03/21/19 18:25: Platelet Count 158 Results/Orders Lab Results Laboratory Tests Test 03/21/19 17:35 03/21/19 18:25 Range/Units Group A Streptococcus Screen NEGATIVE NEGATIVE White Blood Count 3.9 L 4.3-11.0 10^3/uL Red Blood Count 3.48 L 4.35-5.85 10^6/uL Hemoglobin 11.2 L 11.5-16.0 G/DL Hematocrit 35 35-52 % Mean Corpuscular Volume 99 80-99 FL Mean Corpuscular Hemoglobin 32 25-34 PG Mean Corpuscular Hemoglobin Concent 32 32-36 G/DL Red Cell Distribution Width 13.4 10.0-14.5 % Platelet Count 158 130-400 10^3/uL Mean Platelet Volume 10.3 7.4-10.4 FL Neutrophils (%) (Auto) 39 L 42-75 % Lymphocytes (%) (Auto) 48 H 12-44 % Monocytes (%) (Auto) 8 0-12 % Eosinophils (%) (Auto) 3 0-10 % Basophils (%) (Auto) 3 0-10 % Neutrophils # (Auto) 1.5 L 1.8-7.8 X 10^3 Lymphocytes # (Auto) 1.9 1.0-4.0 X 10^3 Monocytes # (Auto) 0.3 0.0-1.0 X 10^3 Eosinophils # (Auto) 0.1 0.0-0.3 10^3/uL Basophils # (Auto) 0.1 0.0-0.1 10^3/uL My Orders Orders - FANTA FARRELL MD Rapid Strep A Screen (03/21/19 18:15) Cbc With Automated Diff (03/21/19 18:15) Chest Pa/Lat (2 View) (03/21/19 18:15) Vital Signs/I&O 03/21/19 17:30 Temp 98.2 Pulse 102 Resp 22 B/P (MAP) 134/91 (105) Pulse Ox 100 O2 Delivery Room Air Capillary Refill : Progress Note : Time: 18:49 Progress Note Strep was negative. Chest x-ray was clear. CBC was unremarkable. I placed the patient on azithromycin which she has tolerated well past. I that she follow-up with her doctor on Sunday and return if any problems or questions Departure Impression Primary Impression: Upper respiratory infection Qualified Codes: J06.9 - Acute upper respiratory infection, unspecified Disposition: 01 HOME, SELF-CARE Condition: Unchanged Departure-Patient Inst. Decision time for Depature: 18:50 Referrals: [facility] [place]LOCAL PHYSICIAN (PCP) Primary Care Physician Patient Instructions: Acute Bronchitis, Adult (DC) Add. Discharge Instructions: Zithromax as prescribed. Rest and fluids over the weekend. Follow-up with your All discharge instructions reviewed with patient and/or family. Voiced understanding. Scripts Azithromycin (Azithromycin) 250 Mg Tablet 250 MG PO UD, #6 TAB TAKE 2 TABLETS ON DAY ONE THEN TAKE 1 TABLET DAILY FOR FOUR MORE DAYS Prov: FANTA FARRELL MD 03/21/19 FANTA FARRELL MD Mar 21, 2019 18:20
--- NOTE | 2019-03-21 18:37 | Diagnostic Imaging Report ---
INDICATION: Sick for approximately 1 to 2 weeks with cough, sore throat, ear pain. TECHNIQUE: Two view chest 6:10 PM CORRELATION STUDY: 03/08/2019 FINDINGS: The heart size, mediastinal configuration and pulmonary vasculature are within normal limits. Lung de [place] garza mildly hyperinflated but overall clear. Calcified granuloma left midlung. Visualized osseous structures are unremarkable. IMPRESSION: 1. Stable chest demonstrates no acute abnormality. Dictated by: Dictated on workstation # [id number]
[2019-03-21 18:46] LABS: HEMATOCRIT 35 % (35-52); HEMOGLOBIN 11.2 G/DL (11.5-16.0); MEAN CORPUSCULAR HEMOGLOBIN 32 PG (25-34); MEAN CORPUSCULAR HGB CONC 32 G/DL (32-36); MEAN CORPUSCULAR VOLUME 99 FL (80-99); MEAN PLATELET VOLUME 10.3 FL (7.4-10.4); NEUTROPHILS % (AUTO) 39 % (42-75); PLATELET COUNT 158 10^3/uL (130-400); RED CELL DISTRIBUTION WIDTH 13.4 % (10.0-14.5); WHITE BLOOD COUNT 3.9 10^3/uL (4.3-11.0)
[2019-03-21 18:47] LABS: BASOPHILS # (AUTO) 0.1 10^3/uL (0.0-0.1); BASOPHILS % (AUTO) 3 % (0-10); EOSINOPHILS # (AUTO) 0.1 10^3/uL (0.0-0.3); EOSINOPHILS % (AUTO) 3 % (0-10); LYMPHOCYTES # (AUTO) 1.9 X 10^3 (1.0-4.0); LYMPHOCYTES % (AUTO) 48 % (12-44); MONOCYTES # (AUTO) 0.3 X 10^3 (0.0-1.0); MONOCYTES % (AUTO) 8 % (0-12); NEUTROPHILS # (AUTO) 1.5 X 10^3 (1.8-7.8)
[2019-03-21] MEDS ORDERED: AZIT250T12 PO (18:52)
[2019-03-21 19:00] VITALS: BP 134/91
--- OUTSIDE RECORDS SUMMARY | 2019-03-21 21:47 | XMS REPORT | Continuity of Care Document ---
Author Organization Unknown Address Unknown Allergies Active Description Code Type Severity Reaction Onset Reported/Identified Relationship to Patient Clinical Status Yes CONTRAST DYE CONTRAST DYE Unknown N/A 01/23/2019 Yes ERYTHROMYCIN ERYTHROMYCIN Unknown N/A 01/23/2019 Yes SULFA SULFA Unknown N/A 01/23/2019 Yes tramadol [id number] Drug Allergy Unknown N/A 01/23/2019 Medications There is no data. Problems Date Dx Coded Attending Type Code Diagnosis Diagnosed By 01/23/2019 MANDA ALEXIS MD, Ot F10.229 ALCOHOL DEPENDENCE WITH INTOXICATION, UN 01/23/2019 MANDA ALEXIS MD, Ot F15.10 OTHER STIMULANT ABUSE, UNCOMPLICATED 01/23/2019 MANDA ALEXIS MD Ot F17.200 NICOTINE DEPENDENCE, UNSPECIFIED, UNCOMP 01/23/2019 MANDA ALEXIS MD, Ot F41.9 ANXIETY DISORDER, UNSPECIFIED 01/23/2019 MANDA ALEXIS MD, Ot J45.909 UNSPECIFIED ASTHMA, UNCOMPLICATED 01/23/2019 MANDA ALEXIS MD Ot R06.02 SHORTNESS OF BREATH 01/23/2019 MANDA ALEXIS MD Ot Z88.2 ALLERGY STATUS TO SULFONAMIDES STATUS 01/23/2019 MANDA ALEXIS MD, Ot Z88.6 ALLERGY STATUS TO ANALGESIC AGENT STATUS 01/23/2019 MANDA ALEXIS MD Ot Z91.041 RADIOGRAPHIC DYE ALLERGY STATUS 03/08/2019 GOVEA DO, BRENNAN L Ot F10.20 ALCOHOL DEPENDENCE, UNCOMPLICATED 03/08/2019 GOVEA DO, BRENNAN L Ot F41.9 ANXIETY DISORDER, UNSPECIFIED 03/08/2019 GOVEA DO, BRENNAN L Ot I10 ESSENTIAL (PRIMARY) HYPERTENSION 03/08/2019 GOVEA DO, BRENNAN L Ot J45.909 UNSPECIFIED ASTHMA, UNCOMPLICATED 03/08/2019 GOVEA DO, BRENNAN L Ot K85.90 ACUTE PANCREATITIS WITHOUT NECROSIS OR I 03/08/2019 GOVEA DO, BRENNAN L Ot R10.12 LEFT UPPER QUADRANT PAIN 03/08/2019 GOVEA DO, BRENNAN L Ot Y90.7 BLOOD ALCOHOL LEVEL OF 200-239 MG/100 ML 03/08/2019 GOVEA DO, BRENNAN L Ot Z87.19 PERSONAL HISTORY OF OTHER DISEASES OF 03/08/2019 GOVEA DO, BRENNAN L Ot Z87.440 PERSONAL HISTORY OF URINARY (TRACT) INFE 03/08/2019 GOVEA DO, BRENNAN L Ot Z88.1 ALLERGY STATUS TO OTHER ANTIBIOTIC AGENT 03/08/2019 GOVEA DO, BRENNAN L Ot Z88.2 ALLERGY STATUS TO SULFONAMIDES STATUS 03/08/2019 GOVEA DO, BRENNAN L Ot Z88.5 ALLERGY STATUS TO NARCOTIC AGENT STATUS 03/08/2019 GOVEA DO, BRENNAN L Ot Z98.51 TUBAL LIGATION STATUS 03/11/2019 GOVEA DO, BRENNAN L Ot F10.20 ALCOHOL DEPENDENCE, UNCOMPLICATED 03/11/2019 GOVEA DO, BRENNAN L Ot F41.9 ANXIETY DISORDER, UNSPECIFIED 03/11/2019 GOVEA DO, BRENNAN L Ot I10 ESSENTIAL (PRIMARY) HYPERTENSION 03/11/2019 GOVEA DO, BRENNAN L Ot J45.909 UNSPECIFIED ASTHMA, UNCOMPLICATED 03/11/2019 GOVEA DO, BRENNAN L Ot K85.90 ACUTE PANCREATITIS WITHOUT NECROSIS OR I 03/11/2019 GOVEA DO, BRENNAN L Ot R10.12 LEFT UPPER QUADRANT PAIN 03/11/2019 GOVEA DO, BRENNAN L Ot Y90.7 BLOOD ALCOHOL LEVEL OF 200-239 MG/100 ML 03/11/2019 GOVEA DO, BRENNAN L Ot Z87.19 PERSONAL HISTORY OF OTHER DISEASES OF 03/11/2019 GOVEA DO, BRENNAN L Ot Z87.440 PERSONAL HISTORY OF URINARY (TRACT) INFE 03/11/2019 GOVEA DO, BRENNAN L Ot Z88.1 ALLERGY STATUS TO OTHER ANTIBIOTIC AGENT 03/11/2019 GOVEA DO, BRENNAN L Ot Z88.2 ALLERGY STATUS TO SULFONAMIDES STATUS 03/11/2019 GOVEA DO, BRENNAN L Ot Z88.5 ALLERGY STATUS TO NARCOTIC AGENT STATUS 03/11/2019 GOVEA DO, BRENNAN L Ot Z98.51 TUBAL LIGATION STATUS Procedures There is no data. Results Test [...] smear finding identification by light microscopy YES [facility] Comprehensive metabolic panel - 01/23/19 17:20 Serum [...] or plasma urea nitrogen/creatinine mass ratio 12 NRG Serum or plasma creatinine measurement with calculation of estimated glomerular filtration rate 53 NRG Serum or plasma glucose measurement (mass/volume) 76 [...] ENTRY 3 JOI. NO SUSCEPTIBILITY PERFORMED. NRG Complete blood count (CBC) with automated white blood cell (WBC) differential - 03/08/19 07:35 Blood leukocytes automated count (number/volume) 5.1 10*3/uL 4.3-11.0 Blood erythrocytes automated count (number/volume) 3.65 10*6/uL 4.35-5.85 Venous blood hemoglobin measurement (mass/volume) 12.0 g/dL 11.5-16.0 Blood hematocrit (volume fraction) 36 % 35-52 Automated erythrocyte mean corpuscular volume 99 [foz_us] 80-99 Automated erythrocyte mean corpuscular hemoglobin (mass per erythrocyte) 33 pg 25-34 Automated erythrocyte mean corpuscular hemoglobin concentration measurement (mass/volume) 33 g/dL 32-36 Automated erythrocyte distribution width ratio 12.9 % 10.0- 14.5 Automated blood platelet count (count/volume) 132 10*3/uL 130-400 Automated blood platelet mean volume measurement 10.0 [foz_us] 7.4-10.4 Automated blood neutrophils/100 leukocytes 59 % 42-75 Automated blood lymphocytes/100 leukocytes 23 % 12-44 Blood monocytes/100 leukocytes 15 % 0-12 Automated blood eosinophils/100 leukocytes 3 % 0-10 Automated blood basophils/100 leukocytes 1 % 0-10 Blood neutrophils automated count (number/volume) 3.0 10*3 1.8-7.8 Blood lymphocytes automated count (number/volume) 1.2 10*3 1.0-4.0 Blood monocytes automated count (number/volume) 0.8 10*3 0.0- 1.0 Automated eosinophil count 0.1 10*3/uL 0.0-0.3 Automated blood basophil count (count/volume) 0.0 10*3/uL 0.0-0.1 Comprehensive metabolic panel - 03/08/19 07:35 Serum or plasma sodium measurement (moles/volume) 142 mmol/L 135-145 Serum or plasma potassium measurement (moles/volume) 3.7 mmol/L 3.6-5.0 Serum or plasma chloride measurement (moles/volume) 98 mmol/L 98-107 Carbon dioxide 26 mmol/L 21-32 Serum or plasma anion gap determination (moles/volume) 18 mmol/L 5-14 Serum or plasma urea nitrogen measurement (mass/volume) 7 mg/dL 7-18 Serum or plasma creatinine measurement (mass/volume) 0.64 mg/dL 0.60-1.30 Serum or plasma urea nitrogen/creatinine mass ratio 11 NRG Serum or plasma creatinine measurement with calculation of estimated glomerular filtration rate > NRG Serum or plasma glucose measurement (mass/volume) 95 mg/dL 70-105 Serum or plasma calcium measurement (mass/volume) 9.3 mg/dL 8.5-10.1 Serum or plasma total bilirubin measurement (mass/volume) 0.9 mg/dL 0.1-1.0 Serum or plasma alkaline phosphatase measurement (enzymatic activity/volume) 100 U/L 40-136 Serum or plasma aspartate aminotransferase measurement (enzymatic activity/volume) 42 U/L 5-34 Serum or plasma alanine aminotransferase measurement (enzymatic activity/volume) 17 U/L 0-55 Serum or plasma protein measurement (mass/volume) 7.7 g/dL 6.4-8.2 Serum or plasma albumin measurement (mass/volume) 4.3 g/dL 3.2-4.5 CALCIUM CORRECTED 9.1 mg/dL 8.5-10.1 Lipase - 03/08/19 07:35 Lipase 920 U/L 8-78 Serum or plasma ethanol measurement (mass/volume) - 03/08/19 07:35 Serum or plasma ethanol measurement (mass/volume) 217 mg/dL <10 Complete urinalysis with reflex to culture - 03/08/19 08:18 Urine color determination DARK YELLOW NRG Urine clarity determination SLT CLOUDY NRG Urine pH measurement by test strip 6.0 5-9 Specific gravity of urine by test strip 1.020 1.016-1.022 Urine protein assay by test strip, semi-quantitative 1+ NEGATIVE Urine glucose detection by automated test strip NEGATIVE NEGATIVE Erythrocytes detection in urine sediment by light microscopy NEGATIVE NEGATIVE Urine ketones detection by automated test strip TRACE NEGATIVE Urine nitrite detection by test strip NEGATIVE NEGATIVE Urine total bilirubin detection by test strip 1+ NEGATIVE Urine urobilinogen measurement by automated test strip (mass/volume) 1.0 mg/dL NORMAL Urine leukocyte esterase detection by dipstick TRACE NEGATIVE Automated urine sediment erythrocyte count by [...] detection in urine sediment by light microscopy PRESENT NRG Mucus detection in urine sediment by light microscopy SMALL NRG Complete urinalysis with reflex to culture YES NRG Hyaline casts detection in urine sediment by light microscopy 0-2 NRG Bacterial urine culture - 03/08/19 08:18 Bacterial urine culture 3 OR MORE NRG COLONY COUNT >100,000/ML NRG FTX;REPORTABLE (GRAM POSITIVE) SUGGESTING PROBABLE NRG FREE TEXT ENTRY 2 COLLECTION CONTAMINATION WITH SKIN JOI NRG FREE TEXT ENTRY 3 NO SUSCEPTIBILITY PERFORMED NRG Streptococcus pyogenes antigen detection - 03/21/19 17:35 Streptococcus pyogenes antigen detection NEGATIVE NEGATIVE Complete blood count (CBC) with automated white blood cell (WBC) differential - 03/21/19 18:25 Blood leukocytes automated count (number/volume) 3.9 10*3/uL 4.3-11.0 Blood erythrocytes automated count (number/volume) 3.48 10*6/uL 4.35-5.85 Venous blood hemoglobin measurement (mass/volume) 11.2 g/dL 11.5-16.0 Blood hematocrit (volume fraction) 35 % 35-52 Automated erythrocyte mean corpuscular volume 99 [foz_us] 80-99 Automated erythrocyte mean corpuscular hemoglobin (mass per erythrocyte) 32 pg 25-34 Automated erythrocyte mean corpuscular hemoglobin concentration measurement (mass/volume) 32 g/dL 32-36 Automated erythrocyte distribution width ratio 13.4 % 10.0- 14.5 Automated blood platelet count (count/volume) 158 10*3/uL 130-400 Automated blood platelet mean volume measurement 10.3 [foz_us] 7.4-10.4 Automated blood neutrophils/100 leukocytes 39 % 42-75 Automated blood lymphocytes/100 leukocytes 48 % 12-44 Blood monocytes/100 leukocytes 8 % 0-12 Automated blood eosinophils/100 leukocytes 3 % 0-10 Automated blood basophils/100 leukocytes 3 % 0-10 Blood neutrophils automated count (number/volume) 1.5 10*3 1.8-7.8 Blood lymphocytes automated count (number/volume) 1.9 10*3 1.0-4.0 Blood monocytes automated count (number/volume) 0.3 10*3 0.0- 1.0 Automated eosinophil count 0.1 10*3/uL 0.0-0.3 Automated blood basophil count (count/volume) 0.1 10*3/uL 0.0-0.1 Encounters ACCT No. Visit Date/Time Discharge Status Pt. Type Provider Facility Loc./Unit Complaint [id number] 03/08/2019 07:24:00 03/08/2019 10:00:00 DIS Emergency BRENNAN GOVEA DO Via [facility] ER FS ABD PAIN,CHEST PAIN [id number] 01/23/2019 17:04:00 01/23/2019 19:43:00 DIS Emergency MANDA ALEXIS MD Via [facility] ER FS SHAKING,SOB [id number] 03/21/2019 18:36:00 Document Registration
== END 2019-03-21 18:59 | disposition home or self-care (01) ==
LOC: EDUNIT# 17:26 → ER FS 17:27
DX: J06.9 Acute upper respiratory infection, unspecified (principal); J45.909 Unspecified asthma, uncomplicated; J42 Unspecified chronic bronchitis; I10 Essential (primary) hypertension; F41.9 Anxiety disorder, unspecified; F32.9 Major depressive disorder, single episode, unspecified; F10.20 Alcohol dependence, uncomplicated; Y90.9 Presence of alcohol in blood, level not specified; Z87.19 Personal history of other diseases of the digestive system; Z98.51 Tubal ligation status; Z88.5 Allergy status to narcotic agent; Z88.1 Allergy status to other antibiotic agents; Z88.2 Allergy status to sulfonamides; Z91.041 Radiographic dye allergy status
CPT/HCPCS: 36415; 71046; 85025; 87430; 99284

== ENCOUNTER 2019-04-01 14:36 | Emergency (ER) | payer SELFPAY ==
[~2019-04-01] VITALS: Ht 165.1 cm; Wt 46.3 kg
[~2019-04-01 14:36] MED LIST changes: +AZIT250T12 PO
--- OUTSIDE RECORDS SUMMARY | 2019-04-01 14:41 | XMS REPORT | Continuity of Care Document ---
Author Organization Unknown Address Unknown Allergies Active Description Code Type Severity Reaction Onset Reported/Identified Relationship to Patient Clinical Status Yes CONTRAST DYE CONTRAST DYE Unknown N/A 01/23/2019 Yes ERYTHROMYCIN ERYTHROMYCIN Unknown N/A 01/23/2019 Yes SULFA SULFA Unknown N/A 01/23/2019 Yes tramadol [id number] Drug Allergy Unknown N/A 01/23/2019 Medications There [...] BRENNAN L Ot Z98.51 TUBAL LIGATION STATUS 03/27/2019 JAMI GALINDO, FANTA Calero Ot F10.20 ALCOHOL DEPENDENCE, UNCOMPLICATED 03/27/2019 JAMI GALINDO, FANTA Calero Ot F32.9 MAJOR DEPRESSIVE DISORDER, SINGLE EPISOD 03/27/2019 JAMI GALINDO, FANTA Calero Ot F41.9 ANXIETY DISORDER, UNSPECIFIED 03/27/2019 JAMI GALINDO, FANTA Calero Ot I10 ESSENTIAL (PRIMARY) HYPERTENSION 03/27/2019 JAMI GALINDO, FANTA Calero Ot J06.9 ACUTE UPPER RESPIRATORY INFECTION, UNSPE 03/27/2019 JAMI GALINDO, FANTA Calero Ot J42 UNSPECIFIED CHRONIC BRONCHITIS 03/27/2019 JAMI GALINDO, FANTA Calero Ot J45.909 UNSPECIFIED ASTHMA, UNCOMPLICATED 03/27/2019 JAMI GALINDO, FANTA Calero Ot R05 COUGH 03/27/2019 JAMI GALINDO, FANTA Calero Ot Y90.9 PRESENCE OF ALCOHOL IN BLOOD, LEVEL NOT 03/27/2019 JAMI GALINDO, FANTA Calero Ot Z87.19 PERSONAL HISTORY OF OTHER DISEASES OF TH 03/27/2019 FANTA FARRELL MD Ot Z88.1 ALLERGY STATUS TO OTHER ANTIBIOTIC AGENT 03/27/2019 FANTA FARRELL MD Ot Z88.2 ALLERGY STATUS TO SULFONAMIDES STATUS 03/27/2019 FANTA FARRELL MD Ot Z88.5 ALLERGY STATUS TO NARCOTIC AGENT STATUS 03/27/2019 FANTA FARRELL MD Ot Z91.041 RADIOGRAPHIC DYE ALLERGY STATUS 03/27/2019 FANTA FARRELL MD Ot Z98.51 TUBAL LIGATION STATUS Procedures There [...] smear finding identification by light microscopy YES [facility] Comprehensive metabolic panel - 01/23/19 17:20 Serum [...] or plasma urea nitrogen/creatinine mass ratio 12 [facility] Serum or plasma creatinine measurement with calculation of estimated glomerular filtration rate 53 [facility] Serum or plasma glucose measurement (mass/volume) 76 [...] 17:35 Streptococcus pyogenes antigen detection NEGATIVE NEGATIVE Bacterial throat culture - 03/21/19 17:35 Bacterial throat culture NBS NRG Complete blood count (CBC) with automated [...] Status Pt. Type Provider Facility Loc./Unit Complaint [id number] 03/21/2019 17:27:00 03/21/2019 18:59:00 DIS Outpatient JAMI GALINDO, FANTA Calero [facility] ER FS SORE THROAT,COUGH,HEADACHE,CHEST PAIN [id number] 03/08/2019 07:24:00 03/08/2019 10:00:00 DIS Emergency BRENNAN GOVEA DO [facility] ER FS ABD PAIN,CHEST PAIN [id number] 01/23/2019 17:04:00 01/23/2019 19:43:00 DIS Emergency REUBEN GALINDO, MANDA Barraza [facility] ER FS SHAKING,SOB
--- NOTE | 2019-04-01 15:01 | ED Abdominal Pain ---
General Chief Complaint: Abdominal/GI Problems Stated Complaint: ABD PAIN Source of Information: Patient, Old Records, RN Notes Reviewed Exam Limitations: Intoxication History of Present Illness Date Seen by Provider: Apr 01, 2019 Time Seen by Provider: 15:00 Initial Comments Patient re-presents to this department c/ c/o worsening right sided abdominal pain. Was seen here on 03/21/19 and found to have an elevated lipase c/w pancreatitis and was offered admission but she declined @ that time. Patient is a known alcoholic. Was told she needed to refrain from ETOH in light of her pancreatitis but has obviously continued to drink. Rates her pain @ 06/19. Is currently obviously intoxicated. Timing/Duration: 1 Week Severity/Quality: Severe (06/19), Aching Location: RUQ, RLQ Radiation: No Radiation Activities at Onset: None Modifying Factors: Improves With Other (none) Associated Symptoms: Denies Symptoms (x/ as noted. ) Allergies and Home Medications Allergies Coded Allergies: tramadol (Unverified Adverse Reaction, Unknown, 01/23/19) Uncoded Allergies: CONTRAST DYE (Adverse Reaction, Unknown, 01/23/19) ERYTHROMYCIN (Adverse Reaction, Unknown, 01/23/19) SULFA (Adverse Reaction, Unknown, 01/23/19) Home Medications Azithromycin 250 Mg Tablet, 250 MG PO UD TAKE 2 TABLETS ON DAY ONE THEN TAKE 1 TABLET DAILY FOR FOUR MORE DAYS Prescribed by: FANTA FARRELL MD on 03/21/19 185 Cephalexin 500 Mg Capsule, 500 MG PO BID Prescribed by: LACEY ROSAS on 04/04/19 2353 Hydrocodone/Acetaminophen 1 Each Tablet, 1 TAB PO Q4-6HR Prescribed by: LACEY ROSAS on 04/04/19 2353 Ondansetron 4 Mg Tab.rapdis, 4 MG PO Q6H PRN for NAUSEA/VOMITING-1ST LINE Prescribed by: BRENNAN GOVEA on 03/08/19 0939 [morphine ] , 15 MG PO Q12H PRN for pain Prescribed by: BRENNAN GOVEA on 03/08/19 0939 Patient Home Medication List Home Medication List Reviewed: Yes Review of Systems Review of Systems Constitutional: see HPI Gastrointestinal: See HPI, Abdominal Pain (right sided) All Other Systems Reviewed Negative Unless Noted: Yes (Negative excepted noted.) Past Fulocxh-Qudiui-Obbdbd Hx Patient Social History Alcohol Beverage of Choice: Beer, Other Type Used: Cigarettes 2nd Hand Smoke Exposure: No Recent Hopitalizations: No Seasonal Allergies Seasonal Allergies: No Past Medical History Surgeries: Yes (RHINOPLASTY) Tubal Ligation Respiratory: Yes (TOBACCOISM) Asthma, Chronic Bronchitis Cardiac: Yes Hypertension Neurological: 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 oz. 46.985358pd; BMI Method:Stated General Appearance: WD/WN, no apparent distress, other (obviously intoxicated) HEENT: other (strong AOTB) Respiratory: no respiratory distress Cardiovascular: regular rate, rhythm Gastrointestinal: guarding; No rebound; tenderness (primarily epigastric) Rectal: deferred Neurologic/Psychiatric: no motor/sensory deficits, alert, other (intoxicated) Skin: warm/dry Progress/Results/Core Measures Results/Orders Lab Results Laboratory Tests Test 04/01/19 14:55 04/01/19 15:14 Range/Units Urine Color YELLOW Urine Clarity CLEAR Urine pH 7.5 5-9 Urine Specific [place] 1.015 L 1.016-1.022 Urine Protein NEGATIVE NEGATIVE Urine Glucose (UA) NEGATIVE NEGATIVE Urine Ketones NEGATIVE NEGATIVE Urine Nitrite NEGATIVE NEGATIVE Urine Bilirubin NEGATIVE NEGATIVE Urine Urobilinogen 0.2 NORMAL MG/DL Urine Leukocyte Esterase NEGATIVE NEGATIVE Urine RBC (Auto) NEGATIVE NEGATIVE Urine RBC NONE /HPF Urine WBC 2-5 /HPF Urine Squamous Epithelial Cells 10-25 H /HPF Urine Crystals NONE /LPF Urine Bacteria TRACE /HPF Urine Casts NONE /LPF Urine Mucus NEGATIVE /LPF Urine Culture Indicated NO Urine Opiates Screen NEGATIVE NEGATIVE Urine Oxycodone Screen NEGATIVE NEGATIVE Urine Methadone Screen NEGATIVE NEGATIVE Urine Propoxyphene Screen NEGATIVE NEGATIVE Urine Barbiturates Screen NEGATIVE NEGATIVE Ur Tricyclic Antidepressants Screen NEGATIVE NEGATIVE Urine Phencyclidine Screen NEGATIVE NEGATIVE Urine Amphetamines Screen NEGATIVE NEGATIVE Urine Methamphetamines Screen NEGATIVE NEGATIVE Urine Benzodiazepines Screen POSITIVE H NEGATIVE Urine Cocaine Screen NEGATIVE NEGATIVE Urine Cannabinoids Screen NEGATIVE NEGATIVE White Blood Count 4.7 4.3-11.0 10^3/uL Red Blood Count 3.60 L 4.35-5.85 10^6/uL Hemoglobin 11.8 11.5-16.0 G/DL Hematocrit 36 35-52 % Mean Corpuscular Volume 101 H 80-99 FL Mean Corpuscular Hemoglobin 33 25-34 PG Mean Corpuscular Hemoglobin Concent 33 32-36 G/DL Red Cell Distribution Width 15.4 H 10.0-14.5 % Platelet Count 64 L 130-400 10^3/uL Mean Platelet Volume 11.0 H 7.4-10.4 FL Neutrophils (%) (Auto) 35 L 42-75 % Lymphocytes (%) (Auto) 44 12-44 % Monocytes (%) (Auto) 16 H 0-12 % Eosinophils (%) (Auto) 2 0-10 % Basophils (%) (Auto) 2 0-10 % Neutrophils # (Auto) 1.6 L 1.8-7.8 X 10^3 Lymphocytes # (Auto) 2.1 1.0-4.0 X 10^3 Monocytes # (Auto) 0.8 0.0-1.0 X 10^3 Eosinophils # (Auto) 0.1 0.0-0.3 10^3/uL Basophils # (Auto) 0.1 0.0-0.1 10^3/uL Sodium Level 146 H 135-145 MMOL/L Potassium Level 3.8 3.6-5.0 MMOL/L Chloride Level 106 98-107 MMOL/L Carbon Dioxide Level 26 21-32 MMOL/L Anion Gap 14 5-14 MMOL/L Blood Urea Nitrogen 5 L 7-18 MG/DL Creatinine 0.63 0.60-1.30 MG/DL Estimat Glomerular Filtration Rate > 60 BUN/Creatinine Ratio 8 Glucose Level 99 70-105 MG/DL Calcium Level 8.8 8.5-10.1 MG/DL Corrected Calcium 9.0 8.5-10.1 MG/DL Magnesium Level 1.8 1.8-2.4 MG/DL Total Bilirubin 0.5 0.1-1.0 MG/DL Aspartate Amino Transf (AST/SGOT) 66 H 5-34 U/L Alanine Aminotransferase (ALT/SGPT) 20 0-55 U/L Alkaline Phosphatase 111 40-136 U/L Troponin I < 0.30 <0.30 NG/ML Total Protein 6.6 6.4-8.2 GM/DL Albumin 3.8 3.2-4.5 GM/DL Lipase 646 H 8-78 U/L Serum Alcohol 362 *H <10 MG/DL My Orders Orders - ZEKE SURESH DO Ed Iv/Invasive Line Start (04/01/19 15:05) Alcohol (04/01/19 15:05) Cbc With Automated Diff (04/01/19 15:05) Comprehensive Metabolic Panel (04/01/19 15:05) Lipase (04/01/19 15:05) Magnesium (04/01/19 15:05) Troponin I (04/01/19 15:05) Ua Culture If Indicated (04/01/19 15:05) Drug Screen Stat (Urine) (04/01/19 15:14) Ketorolac Injection (Toradol Injection) (04/01/19 16:00) Ns Iv 1000 Ml (Sodi... W/Thiamine Inject (04/01/19 16:30) Iv Push Payroll Representative Ed (04/01/19 ) Vital Signs/I&O 04/01/19 04/01/19 14:45 16:34 Temp 98.0 97.4 Pulse 93 80 Resp 22 18 B/P (MAP) 125/83 (97) 105/56 (72) Pulse Ox 98 97 O2 Delivery Room Air Room Air Progress Progress Note : Progress Note Patient reports little to no improvement in her pain. Waiting on her remaining labs and didn't feel comfortable prescribing a narcotic in light of her PALLAVI being 362. Patient became angry and signed out AMA. Her lipase level is actually improved when compared to 03/21/19. Departure Impression Primary Impression: Alcohol intoxication Additional Impressions: Abdominal pain Pancreatitis Disposition: AGAINST MEDICAL ADVICE Condition: Against Medical Advice Departure-Patient Inst. Referrals: NO,LOCAL PHYSICIAN (PCP/Family) Primary Care Physician ZEKE SURESH DO Apr 01, 2019 15:01
[2019-04-01 15:15] LABS: BACTERIA,URINE TRACE /HPF; BILIRUBIN,URINE NEGATIVE (NEGATIVE); CLARITY,URINE CLEAR; COLOR,URINE YELLOW; GLUCOSE, URINE (UA) NEGATIVE (NEGATIVE); KETONES,URINE NEGATIVE (NEGATIVE); LEUKOCYTE ESTERASE ,URINE NEGATIVE (NEGATIVE); NITRITE,URINE NEGATIVE (NEGATIVE); PH,URINE 7.5 (5-9); PROTEIN,URINE NEGATIVE (NEGATIVE); UROBILINOGEN,URINE 0.2 MG/DL (NORMAL)
[2019-04-01 15:26] LABS: WHITE BLOOD COUNT 4.7 10^3/uL (4.3-11.0)
[2019-04-01 15:27] LABS: HEMATOCRIT 36 % (35-52); HEMOGLOBIN 11.8 G/DL (11.5-16.0); MEAN CORPUSCULAR HEMOGLOBIN 33 PG (25-34); MEAN CORPUSCULAR HGB CONC 33 G/DL (32-36); MEAN CORPUSCULAR VOLUME 101 FL (80-99); NEUTROPHILS % (AUTO) 35 % (42-75); PLATELET COUNT 64 10^3/uL (130-400); RED CELL DISTRIBUTION WIDTH 15.4 % (10.0-14.5)
[2019-04-01 15:28] LABS: BASOPHILS # (AUTO) 0.1 10^3/uL (0.0-0.1); BASOPHILS % (AUTO) 2 % (0-10); EOSINOPHILS # (AUTO) 0.1 10^3/uL (0.0-0.3); EOSINOPHILS % (AUTO) 2 % (0-10); LYMPHOCYTES # (AUTO) 2.1 X 10^3 (1.0-4.0); LYMPHOCYTES % (AUTO) 44 % (12-44); MONOCYTES # (AUTO) 0.8 X 10^3 (0.0-1.0); MONOCYTES % (AUTO) 16 % (0-12); NEUTROPHILS # (AUTO) 1.6 X 10^3 (1.8-7.8)
[2019-04-01 15:40] LABS: AMPHETAMINE SCREEN, URINE NEGATIVE (NEGATIVE); BARBITURATE SCREEN URINE NEGATIVE (NEGATIVE); BENZODIAZEPINES SCREEN URINE POSITIVE (NEGATIVE); CANNABINOID SCREEN, URINE NEGATIVE (NEGATIVE); COCAINE SCREEN URINE NEGATIVE (NEGATIVE); METHADONE STAT NEGATIVE (NEGATIVE); METHAMPHETAMINE SCREEN URINE S NEGATIVE (NEGATIVE); OPIATE SCREEN URINE NEGATIVE (NEGATIVE); OXYCODONE STAT NEGATIVE (NEGATIVE); PROPOXYPHENE STAT NEGATIVE (NEGATIVE); TRICYCLIC ANTIDEPRESSANTS SCRE NEGATIVE (NEGATIVE)
[2019-04-01] MEDS ORDERED: KETOROLAC 30 MG/ML VIAL IVP ONE (16:00)
[2019-04-01 16:10] LABS: CHLORIDE 106 MMOL/L (98-107); POTASSIUM 3.8 MMOL/L (3.6-5.0); SODIUM 146 MMOL/L (135-145)
[2019-04-01 16:11] LABS: ALANINE AMINOTRANSFERASE 20 U/L (0-55); ALKALINE PHOSPHATASE 111 U/L (40-136); BILIRUBIN,TOTAL 0.5 MG/DL (0.1-1.0); BUN/CREATININE RATIO 8; CALCIUM 8.8 MG/DL (8.5-10.1); CARBON DIOXIDE 26 MMOL/L (21-32); CREATININE SERUM 0.63 MG/DL (0.60-1.30); GFR ESTIMATED > 60; GLUCOSE 99 MG/DL (70-105); MAGNESIUM 1.8 MG/DL (1.8-2.4); TOTAL PROTEIN 6.6 GM/DL (6.4-8.2)
[2019-04-01 16:12] LABS: ALBUMIN 3.8 GM/DL (3.2-4.5)
[2019-04-01] MEDS ORDERED: THIAMINE IV SCH (16:30)
[2019-04-01] MEDS ORDERED: NS IV SCH (16:30)
[2019-04-01 16:34] VITALS: BP 105/56
--- NOTE | 2019-04-01 16:34 | NUR ---
Patient reported to another nurse that if she doesn't get something different for pain that she was leaving. Informed patient that Dr. Marie didn't want to order any additional pain meds at this time. Risks of leaving against medical advice were given to patient and she signed the AMA form prior to departure.
[2019-04-01 16:49] LABS: LIPASE 646 U/L (8-78)
== END 2019-04-01 16:34 | disposition left against medical advice (07) ==
LOC: EDUNIT# 14:36 → ER FS 14:38
DX: R10.9 Unspecified abdominal pain (principal); J45.909 Unspecified asthma, uncomplicated; J42 Unspecified chronic bronchitis; I10 Essential (primary) hypertension; F41.9 Anxiety disorder, unspecified; F32.9 Major depressive disorder, single episode, unspecified; F10.20 Alcohol dependence, uncomplicated; Y90.9 Presence of alcohol in blood, level not specified; Z87.440 Personal history of urinary (tract) infections; Z88.5 Allergy status to narcotic agent; Z91.041 Radiographic dye allergy status; Z88.1 Allergy status to other antibiotic agents; Z88.2 Allergy status to sulfonamides; Z98.51 Tubal ligation status
CPT/HCPCS: 36415; 80053; 80306; 80320; 81000; 83690; 83735; 84484; 85025; 96374

== ENCOUNTER 2019-04-04 19:28 | Emergency (ER) | payer SELFPAY ==
[~2019-04-04] VITALS: Ht 165.1 cm; Wt 46.3 kg
--- OUTSIDE RECORDS SUMMARY | 2019-04-04 19:35 | XMS REPORT | Continuity of Care Document ---
Author Organization Unknown Address Unknown Allergies Active Description Code Type Severity Reaction Onset Reported/Identified Relationship to Patient Clinical Status Yes CONTRAST DYE CONTRAST DYE Unknown N/A 01/23/2019 Yes ERYTHROMYCIN ERYTHROMYCIN Unknown N/A 01/23/2019 Yes SULFA SULFA Unknown N/A 01/23/2019 Yes tramadol [id number] Drug Allergy Unknown N/A 01/23/2019 Medications There [...] STATUS TO SULFONAMIDES STATUS 03/11/2019 GOVEA DO, RBENNAN L Ot Z88.5 ALLERGY STATUS TO NARCOTIC [...] smear finding identification by light microscopy YES [facility] Comprehensive metabolic panel - [...] or plasma urea nitrogen/creatinine mass ratio 12 [facility] Serum or plasma creatinine measurement with calculation of estimated glomerular filtration rate 53 [facility] Serum or plasma glucose measurement (mass/volume) [...] blood basophil count (count/volume) 0.1 10*3/uL 0.0-0.1 Complete urinalysis with reflex to culture - 04/01/19 14:55 Urine color determination YELLOW NRG Urine clarity determination CLEAR NRG Urine pH measurement by test strip 7.5 5-9 Specific gravity of urine by test strip 1.015 1.016-1.022 Urine protein assay by test strip, semi-quantitative NEGATIVE NEGATIVE Urine glucose detection by automated test strip NEGATIVE NEGATIVE Erythrocytes detection in urine sediment by light microscopy NEGATIVE NEGATIVE Urine ketones detection by automated test strip NEGATIVE NEGATIVE Urine nitrite detection by test strip NEGATIVE NEGATIVE Urine total bilirubin detection by test strip NEGATIVE NEGATIVE Urine urobilinogen measurement by automated test strip (mass/volume) 0.2 mg/dL NORMAL Urine leukocyte esterase detection by dipstick NEGATIVE NEGATIVE Automated urine sediment erythrocyte count by microscopy (number/high power field) NONE NRG Automated urine sediment leukocyte count by microscopy (number/high power field) [HPF] NRG Bacteria detection in urine sediment by light microscopy TRACE NRG Squamous epithelial cells detection in urine sediment by light microscopy 10-25 NRG Crystals detection in urine sediment by light microscopy NONE NRG Casts detection in urine sediment by light microscopy NONE NRG Mucus detection in urine sediment by light microscopy NEGATIVE NRG Complete urinalysis with reflex to culture NO NRG Urine drug screening test - 04/01/19 14:55 Urine phencyclidine detection by screening method NEGATIVE NEGATIVE Urine benzodiazepines detection by screening method POSITIVE NEGATIVE Urine cocaine detection NEGATIVE NEGATIVE Urine amphetamines detection by screening method NEGATIVE NEGATIVE Urine methamphetamine detection by screening method NEGATIVE NEGATIVE Urine cannabinoids detection by screening method NEGATIVE NEGATIVE Urine opiates detection by screening method NEGATIVE NEGATIVE Urine barbiturates detection NEGATIVE NEGATIVE Screening urine tricyclic antidepressants detection NEGATIVE NEGATIVE Urine methadone detection by screening method NEGATIVE NEGATIVE Urine oxycodone detection NEGATIVE NEGATIVE Urine propoxyphene detection NEGATIVE NEGATIVE Complete blood count (CBC) with automated white blood cell (WBC) differential - 04/01/19 15:14 Blood leukocytes automated count (number/volume) 4.7 10*3/uL 4.3-11.0 Blood erythrocytes automated count (number/volume) 3.60 10*6/uL 4.35-5.85 Venous blood hemoglobin measurement (mass/volume) 11.8 g/dL 11.5-16.0 Blood hematocrit (volume fraction) 36 % 35-52 Automated erythrocyte mean corpuscular volume 101 [foz_us] 80-99 Automated erythrocyte mean corpuscular hemoglobin (mass per erythrocyte) 33 pg 25-34 Automated erythrocyte mean corpuscular hemoglobin concentration measurement (mass/volume) 33 g/dL 32-36 Automated erythrocyte distribution width ratio 15.4 % 10.0- 14.5 Automated blood platelet count (count/volume) 64 10*3/uL 130- 400 Automated blood platelet mean volume measurement 11.0 [foz_us] 7.4-10.4 Automated blood neutrophils/100 leukocytes 35 % 42-75 Automated blood lymphocytes/100 leukocytes 44 % 12-44 Blood monocytes/100 leukocytes 16 % 0-12 Automated blood eosinophils/100 leukocytes 2 % 0-10 Automated blood basophils/100 leukocytes 2 % 0-10 Blood neutrophils automated count (number/volume) 1.6 10*3 1.8-7.8 Blood lymphocytes automated count (number/volume) 2.1 10*3 1.0-4.0 Blood monocytes automated count (number/volume) 0.8 10*3 0.0- 1.0 Automated eosinophil count 0.1 10*3/uL 0.0-0.3 Automated blood basophil count (count/volume) 0.1 10*3/uL 0.0-0.1 Comprehensive metabolic panel - 04/01/19 15:14 Serum or plasma sodium measurement (moles/volume) 146 mmol/L 135-145 Serum or plasma potassium measurement (moles/volume) 3.8 mmol/L 3.6-5.0 Serum or plasma chloride measurement (moles/volume) 106 mmol/L 98-107 Carbon dioxide 26 mmol/L 21-32 Serum or plasma anion gap determination (moles/volume) 14 mmol/L 5-14 Serum or plasma urea nitrogen measurement (mass/volume) 5 mg/dL 7-18 Serum or plasma creatinine measurement (mass/volume) 0.63 mg/dL 0.60-1.30 Serum or plasma urea nitrogen/creatinine mass ratio 8 NRG Serum or plasma creatinine measurement with calculation of estimated glomerular filtration rate > NRG Serum or plasma glucose measurement (mass/volume) 99 mg/dL 70-105 Serum or plasma calcium measurement (mass/volume) 8.8 mg/dL 8.5-10.1 Serum or plasma total bilirubin measurement (mass/volume) 0.5 mg/dL 0.1-1.0 Serum or plasma alkaline phosphatase measurement (enzymatic activity/volume) 111 U/L 40-136 Serum or plasma aspartate aminotransferase measurement (enzymatic activity/volume) 66 U/L 5-34 Serum or plasma alanine aminotransferase measurement (enzymatic activity/volume) 20 U/L 0-55 Serum or plasma protein measurement (mass/volume) 6.6 g/dL 6.4-8.2 Serum or plasma albumin measurement (mass/volume) 3.8 g/dL 3.2-4.5 CALCIUM CORRECTED 9.0 mg/dL 8.5-10.1 Magnesium - 04/01/19 15:14 Magnesium 1.8 mg/dL 1.8-2.4 Serum or plasma troponin i.cardiac measurement (mass/volume) - 04/01/19 15:14 Serum or plasma troponin i.cardiac measurement (mass/volume) < ng/mL <0.30 Lipase - 04/01/19 15:14 Lipase 646 U/L 8-78 Serum or plasma ethanol measurement (mass/volume) - 04/01/19 15:14 Serum or plasma ethanol measurement (mass/volume) 362 mg/dL <10 Encounters ACCT No. Visit Date/Time Discharge Status Pt. Type Provider Facility Loc./Unit Complaint [id number] 04/01/2019 14:38:00 04/01/2019 16:34:00 DIS Emergency ZEKE SURESH DO [facility] FS ABD PAIN [id number] 03/21/2019 17:27:00 03/21/2019 18:59:00 DIS Outpatient JAMI GALINDO, FANTA Calero [facility] FS SORE THROAT,COUGH,HEADACHE,CHEST PAIN [id number] 03/08/2019 07:24:00 03/08/2019 10:00:00 DIS Emergency BRENNAN GOVEA DO [facility] FS ABD PAIN,CHEST PAIN [id number] 01/23/2019 17:04:00 01/23/2019 19:43:00 DIS Emergency REUBEN GALINDO, MANDA Barraza [facility] FS SHAKING,SOB
[2019-04-04] MEDS ORDERED: ADENOSINE 6 MG/2 ML (ADENOCARD) VIAL IV ONE (19:45)
[2019-04-04] MEDS ORDERED: DILTIAZEM IV FOR DRIP 125 MG in NS (IVPB) 100 ML IV SCH (20:00)
[2019-04-04] MEDS ORDERED: DILTIAZEM 25 MG/5 ML INJ (CARDIZEM) VIAL IVP ONE (20:00)
[2019-04-04 20:10] LABS: HEMOGLOBIN 12.2 G/DL (11.5-16.0); RED CELL DISTRIBUTION WIDTH 14.8 % (10.0-14.5); WHITE BLOOD COUNT 6.9 10^3/uL (4.3-11.0)
--- NOTE | 2019-04-04 20:11 | Diagnostic Imaging Report ---
INDICATION: Bronchitis and antibiotics. COMPARISON: 03/21/2019. FINDINGS: Benign calcified granuloma in the left midlung stable. Lungs are clear, although hyperexpanded. There is no failure, effusion, or pneumothorax. No free air beneath the diaphragms. IMPRESSION: Clear hyperexpanded lungs. Benign calcified left lung nodule stable. No acute abnormality or change identified. Dictated by: Dictated on workstation # [id number]
[2019-04-04 20:15] LABS: AMPHETAMINE SCREEN, URINE NEGATIVE (NEGATIVE); BARBITURATE SCREEN URINE POSITIVE (NEGATIVE); BENZODIAZEPINES SCREEN URINE POSITIVE (NEGATIVE); CANNABINOID SCREEN, URINE NEGATIVE (NEGATIVE); COCAINE SCREEN URINE NEGATIVE (NEGATIVE); METHADONE STAT NEGATIVE (NEGATIVE); METHAMPHETAMINE SCREEN URINE S NEGATIVE (NEGATIVE); OPIATE SCREEN URINE NEGATIVE (NEGATIVE); OXYCODONE STAT NEGATIVE (NEGATIVE); PROPOXYPHENE STAT NEGATIVE (NEGATIVE); TRICYCLIC ANTIDEPRESSANTS SCRE NEGATIVE (NEGATIVE)
[2019-04-04] MEDS ORDERED: NS IV 1000 ML 1,000 ML IV SCH (20:15)
[2019-04-04 20:16] LABS: CLARITY,URINE SL CLOUDY; COLOR,URINE DARK YELLOW
[2019-04-04 20:17] LABS: GLUCOSE, URINE (UA) NEGATIVE (NEGATIVE); KETONES,URINE TRACE (NEGATIVE); LEUKOCYTE ESTERASE ,URINE TRACE (NEGATIVE); NITRITE,URINE POSITIVE (NEGATIVE); PH,URINE 8.5 (5-9); PROTEIN,URINE 2+ (NEGATIVE)
--- NOTE | 2019-04-04 20:26 | NUR ---
PATIENT HAS TREMORS. HEART RATE AT THIS TIME IS 99 AND IS IN SINUS RHYTHM.
[2019-04-04 20:27] LABS: BACTERIA,URINE LARGE /HPF; BILIRUBIN,URINE 2+ (NEGATIVE)
[2019-04-04 20:28] LABS: WBC,URINE 0-2 /HPF
[2019-04-04 20:38] LABS: ALANINE AMINOTRANSFERASE 16 U/L (0-55); ALBUMIN 4.2 GM/DL (3.2-4.5); ALKALINE PHOSPHATASE 122 U/L (40-136); BILIRUBIN,TOTAL 2.1 MG/DL (0.1-1.0); BUN/CREATININE RATIO 10; CALCIUM 9.5 MG/DL (8.5-10.1); CARBON DIOXIDE 24 MMOL/L (21-32); CHLORIDE 94 MMOL/L (98-107); GFR ESTIMATED > 60; GLUCOSE 120 MG/DL (70-105); LIPASE 181 U/L (8-78); POTASSIUM 3.7 MMOL/L (3.6-5.0); SODIUM 136 MMOL/L (135-145); TOTAL PROTEIN 7.5 GM/DL (6.4-8.2)
[2019-04-04] MEDS ORDERED: LABETALOL HCL 20 MG/4 ML VIAL IV ONE (22:15)
[2019-04-04] MEDS ORDERED: cefTRIAXone FOR IV USE 1,000 MG in WATER (STERILE) FOR INJECTION 10 ML IV ONE (22:45)
--- NOTE | 2019-04-04 22:49 | ED Abdominal Pain ---
General Chief Complaint: Abdominal/GI Problems Stated Complaint: ABD PAIN,BACK PAIN Nursing Triage Note: PT. C/O ABD PAIN THAT STARTED 1 WEEK AGO, BACK PAIN THAT STARTED 2 DAYS AGO, AND SAID SHE HAD BEEN TREATED WITH A Z-ELADIO FOR BRONCHITIS A WEEK AGO. WHEN THE PATIENT WAS PLACED ON THE MONITOR THE RHYTHM WAS SVT WITH A RATE OF 162. NOW THE RATE IS 110 SINUS TACH. Sepsis Screen: No Definite Risk Source of Information: Patient Exam Limitations: No Limitations, Intoxication History of Present Illness Date Seen by Provider: Apr 04, 2019 Time Seen by Provider: 19:45 Initial Comments Patient is a 48-year-old female with history of chronic abdominal pain, chronic pancreatitis who presents with chest pain palpitations starting earlier this evening in abdominal pain for the past 2-3 days. Patient has fever, chills, nausea vomiting sweats. Reports dyspnea and increased anxiety state. Denies nausea, vomiting, hematemesis, coffee-ground emesis. No bloody stools dark tarry stools, diarrhea. No urinary frequency urgency or dysuria. Denies history of CAD, DVT and PE. Patient smokes cigarettes and drinks regular alcohol. Denies drug abuse. Timing/Duration: Changing Over Time, Intermittent Severity/Quality: Moderate Location: Epigastric Radiation: Back Modifying Factors: Improves With Other Associated Symptoms: Back Pain, Chest Pain, Nausea/Vomiting Allergies and Home Medications Allergies Coded Allergies: tramadol (Unverified Adverse Reaction, Unknown, 01/23/19) Uncoded Allergies: CONTRAST DYE (Adverse Reaction, Unknown, 01/23/19) ERYTHROMYCIN (Adverse Reaction, Unknown, 01/23/19) SULFA (Adverse Reaction, Unknown, 01/23/19) Home Medications Azithromycin 250 Mg Tablet, 250 MG PO UD TAKE 2 TABLETS ON DAY ONE THEN TAKE 1 TABLET DAILY FOR FOUR MORE DAYS Prescribed by: FANTA FARRELL MD on 03/21/19 8567 Ondansetron 4 Mg Tab.rapdis, 4 MG PO Q6H PRN for NAUSEA/VOMITING-1ST LINE Prescribed by: BRENNAN GOVEA on 03/08/19 0939 [morphine ] , 15 MG PO Q12H PRN for pain Prescribed by: BRENNAN GOVEA on 03/08/19 0939 Patient Home Medication List Home Medication List Reviewed: Yes Review of Systems Review of Systems Constitutional: see HPI EENTM: See HPI Respiratory: See HPI Cardiovascular: See HPI Gastrointestinal: See HPI Genitourinary: See HPI Musculoskeletal: see HPI Skin: see HPI Psychiatric/Neurological: See HPI Endocrine: See HPI Hematologic/Lymphatic: See HPI Past Nzljkos-Exkpva-Agdxvx Hx Patient Social History Alcohol Beverage of Choice: Beer, Whiskey Type Used: Cigarettes 2nd Hand Smoke Exposure: No Recent Foreign Travel: No Contact w/Someone Who Travel: No Recent Infectious Disease Expo: No Recent Hopitalizations: No Physical Abuse: No Sexual Abuse: No Mistreated: No Fear: No Seasonal Allergies Seasonal Allergies: No Past Medical History Surgeries: Yes (RHINOPLASTY) Tubal Ligation Respiratory: Yes (TOBACCOISM) Asthma, Chronic Bronchitis Cardiac: Yes Hypertension 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 oz. 46.983115ej; BMI Method:Stated General Appearance: WD/WN, no apparent distress, thin, other HEENT: PERRL/EOMI, normal ENT inspection Neck: non-tender, full range of motion, supple Cardiovascular: normal peripheral pulses, regular rate, rhythm Gastrointestinal: soft, tenderness Extremities: normal range of motion, non-tender, normal inspection Neurologic/Psychiatric: electric meter setter II-XII nml as tested, no motor/sensory deficits Skin: normal color Lymphatic: no adenopathy Progress/Results/Core Measures Results/Orders Lab Results Laboratory Tests Test 04/04/19 19:40 04/04/19 19:50 Range/Units Urine Color DARK YELLOW Urine Clarity SL CLOUDY Urine pH 8.5 5-9 Urine Specific [place] >=1.030 1.016-1.022 Urine Protein 2+ H NEGATIVE Urine Glucose (UA) NEGATIVE NEGATIVE Urine Ketones TRACE H NEGATIVE Urine Nitrite POSITIVE H NEGATIVE Urine Bilirubin 2+ H NEGATIVE Urine Urobilinogen 2.0 NORMAL MG/DL Urine Leukocyte Esterase TRACE H NEGATIVE Urine RBC (Auto) NEGATIVE NEGATIVE Urine RBC NONE /HPF Urine WBC 0-2 /HPF Urine Squamous Epithelial Cells 10-25 H /HPF Urine Crystals NONE /LPF Urine Bacteria LARGE H /HPF Urine Casts PRESENT /LPF Urine Hyaline Casts 5-10 H /LPF Urine Mucus SMALL H /LPF Urine Culture Indicated YES Urine Opiates Screen NEGATIVE NEGATIVE Urine Oxycodone Screen NEGATIVE NEGATIVE Urine Methadone Screen NEGATIVE NEGATIVE Urine Propoxyphene Screen NEGATIVE NEGATIVE Urine Barbiturates Screen POSITIVE H NEGATIVE Ur Tricyclic Antidepressants Screen NEGATIVE NEGATIVE Urine Phencyclidine Screen NEGATIVE NEGATIVE Urine Amphetamines Screen NEGATIVE NEGATIVE Urine Methamphetamines Screen NEGATIVE NEGATIVE Urine Benzodiazepines Screen POSITIVE H NEGATIVE Urine Cocaine Screen NEGATIVE NEGATIVE Urine Cannabinoids Screen NEGATIVE NEGATIVE White Blood Count 6.9 4.3-11.0 10^3/uL Red Blood Count 3.71 L 4.35-5.85 10^6/uL Hemoglobin 12.2 11.5-16.0 G/DL Hematocrit 37 35-52 % Mean Corpuscular Volume 100 H 80-99 FL Mean Corpuscular Hemoglobin 33 25-34 PG Mean Corpuscular Hemoglobin Concent 33 32-36 G/DL Red Cell Distribution Width 14.8 H 10.0-14.5 % Platelet Count 63 L 130-400 10^3/uL Mean Platelet Volume 11.0 H 7.4-10.4 FL D-Dimer 1.43 H 0.00-0.49 UG/ML Sodium Level 136 135-145 MMOL/L Potassium Level 3.7 3.6-5.0 MMOL/L Chloride Level 94 L 98-107 MMOL/L Carbon Dioxide Level 24 21-32 MMOL/L Anion Gap 18 H 5-14 MMOL/L Blood Urea Nitrogen 7 7-18 MG/DL Creatinine 0.70 0.60-1.30 MG/DL Estimat Glomerular Filtration Rate > 60 BUN/Creatinine Ratio 10 Glucose Level 120 H 70-105 MG/DL Calcium Level 9.5 8.5-10.1 MG/DL Corrected Calcium 9.3 8.5-10.1 MG/DL Total Bilirubin 2.1 H 0.1-1.0 MG/DL Aspartate Amino Transf (AST/SGOT) 49 H 5-34 U/L Alanine Aminotransferase (ALT/SGPT) 16 0-55 U/L Alkaline Phosphatase 122 40-136 U/L Troponin I < 0.30 <0.30 NG/ML Total Protein 7.5 6.4-8.2 GM/DL Albumin 4.2 3.2-4.5 GM/DL Lipase 181 H 8-78 U/L Thyroid Stimulating Hormone (TSH) 3.23 0.35-4.94 UIU/ML Serum Alcohol < 10 <10 MG/DL My Orders Orders - LACEY ROSAS DO Ekg Tracing (04/04/19 19:49) Troponin I (04/04/19 19:49) Cbc No Diff (04/04/19 19:49) Comprehensive Metabolic Panel (04/04/19 19:49) Chest 1 View Ap/Pa Only (04/04/19 19:49) Adenosine Injection (Adenocard Injection (04/04/19 19:45) Diltiazem Injection (Cardizem Injection) (04/04/19 20:00) Ns (Ivpb) (Sodium C... W/Diltiazem Iv Fo (04/04/19 20:00) Ua Culture If Indicated (04/04/19 19:55) Drug Screen Stat (Urine) (04/04/19 19:55) Thyroid Stimulating Hormone (04/04/19 19:50) Lipase (04/04/19 20:07) Alcohol (04/04/19 20:07) Ns Iv 1000 Ml (Sodium Chloride 0.9%) (04/04/19 20:15) Urine Culture (04/04/19 19:40) Labetalol Injection (Normodyne Injection (04/04/19 22:15) Fibrin Degradation Products (04/04/19 22:07) Ct Chest/Abdomen/Pelvis Wo (04/04/19 22:28) Ceftriaxone For Iv Use (Rocephin For I (04/04/19 22:45) Medications Given in ED Current Medications Medications Dose Ordered Sig/Artemio Route Start Time Stop Time Status Last Admin Dose Admin Ceftriaxone Sodium 1000 mg/ Sterile Water 10 ml @ 200 mls/hr ONCE ONCE IV 04/04/19 22:45 04/04/19 22:47 DC 04/04/19 22:48 200 MLS/HR Labetalol HCl 20 mg ONCE ONCE IV 04/04/19 22:15 04/04/19 22:16 DC 04/04/19 22:11 20 MG Vital Signs/I&O 7/26/19 7/26/19 19:38 20:18 Temp 98.5 98.5 Pulse 162 107 B/P (MAP) 150/110 (123) 150/110 O2 Delivery Room Air Blood Pressure Mean: 123 Departure Communication (Admissions) Family Conversation CT, lab, EKG reviewed. Chest pain, tremors significantly improved with treatment in the emergency Department. Patient converted from tachyarrhythmia to sinus rhythm. Suspect symptoms caused by a combination of alcohol, benzodiazepine. Patient denies hallucinations, which all seizures. Recommend supportive care with PCP follow-up. Return precautions reviewed. Impression Primary Impression: Chest pain Additional Impressions: Chronic abdominal pain Urinary tract infection Anxiety state Disposition: HOME, SELF-CARE Condition: Improved Departure-Patient Inst. Decision time for Depature: 23:51 Referrals: NO,LOCAL PHYSICIAN (PCP/Family) Primary Care Physician Patient Instructions: Anxiety, Adult (DC), Chronic Pain (DC), Urinary Tract Infections in Adults Add. Discharge Instructions: Please increased fluids, and take antibiotics as directed. Continue home medications, take ibuprofen for pain and [place] as needed for additional relief. Follow up with your PCP early next week for reevaluation. Return to the ED if new or worsening symptoms. All discharge instructions reviewed with patient and/or family. Voiced understanding. Scripts Hydrocodone/Acetaminophen ([place] 5-325 Tablet) 1 Each Tablet 1 TAB PO Q4-6HR for Pain MDD 10 TABS for 7 Days, #10 TAB Prov: LACEY ROSAS DO 04/04/19 Cephalexin (Keflex) 500 Mg Capsule 500 MG PO BID, #14 CAP Prov: LACEY ROSAS DO 04/04/19 LACEY ROSAS DO Apr 04, 2019 22:49
[2019-04-04] MEDS ORDERED: HYDR-4226 PO (23:53)
[2019-04-04] MEDS ORDERED: CEPH-507 PO (23:53)
[2019-04-05] VITALS: BP 124/87
[2019-04-05] MEDS ORDERED: HYDROcodone/APAP 10 MG/325 MG (LORTAB) TAB PO ONE
--- NOTE | 2019-04-05 09:11 | Diagnostic Imaging Report ---
PROCEDURE: CT chest, abdomen, and pelvis without contrast. TECHNIQUE: Multiple contiguous axial images were obtained through the chest, abdomen, and pelvis without the use of intravenous contrast. Auto Exposure Controls were utilized during the CT exam to meet ALARA standards for radiation dose reduction. INDICATION: Abdominal and back pain. Comparison is made with a prior chest radiograph from the same day and prior CT abdomen and pelvis from 03/08/2019. FINDINGS: There are several calcified granulomas demonstrated throughout the lungs with the largest within the left lower lobe unchanged from the prior exam. There also however are a few scattered noncalcified pulmonary micronodules measuring on the order of approximately 3 mm within the upper lobes. Given these noncalcified nodules consider a one-year followup. There is no effusion. There is no pneumothorax. There are calcified left hilar lymph nodes. There are small noncalcified but non-pathologically enlarged mediastinal lymph nodes present. The thoracic aorta is normal in caliber but there are coronary calcifications. There is no significant pericardial effusion Within the abdomen there is diffuse hepatic steatosis without focal abnormality. Gallbladder is nondistended without radiodense gallstone. There is some pancreatic calcifications but there is no significant peripancreatic fluid present. There is no pseudocyst. Granulomas within the spleen. There is no adrenal mass. The kidneys appear nonobstructed The small and large bowel appear normal in caliber without obstruction or evidence of abnormal bowel thickening. There is no free fluid within the pelvis. There is no free air or evidence of abscess. Urinary bladder nondistended. The uterus and adnexal regions appear unremarkable. There are prior clips related to tubal ligation. Aorta normal in caliber. There are mild atherosclerotic calcifications. There are multilevel endplate changes within the spine but no findings of an acute or suspicious osseous abnormality. IMPRESSION: 1. No CT evidence of an acute inflammatory or obstructive process within the abdomen or pelvis. 2. There are multiple calcified pulmonary granulomas as well as calcified left hilar lymph node and a splenic granuloma. In addition however, there also are some noncalcified pulmonary micronodules within the upper lobes. Given these noncalcified nodules consider a one-year followup. 3. CT abdomen and pelvis demonstrate some apparent pancreatic calcifications which suggest chronic pancreatitis. There is no current peripancreatic fluid. 4. Hepatic steatosis. 5. There are mild degenerative changes present throughout the spine but there are no findings to suggest an acute or suspicious osseous abnormality. 6. I agree with the preliminary [employer] report. Dictated by: Dictated on workstation # [id number]
== END 2019-04-05 00:02 | disposition home or self-care (01) ==
LOC: EDUNIT# 19:28 → ER FS 19:30
DX: F41.9 Anxiety disorder, unspecified (principal); N39.0 Urinary tract infection, site not specified; R10.13 Epigastric pain; G89.29 Other chronic pain; K86.1 Other chronic pancreatitis; J42 Unspecified chronic bronchitis; J45.909 Unspecified asthma, uncomplicated; I10 Essential (primary) hypertension; F32.9 Major depressive disorder, single episode, unspecified; F10.20 Alcohol dependence, uncomplicated; F17.210 Nicotine dependence, cigarettes, uncomplicated; Z98.51 Tubal ligation status; Z88.5 Allergy status to narcotic agent; Z88.1 Allergy status to other antibiotic agents; Z88.2 Allergy status to sulfonamides; Z91.041 Radiographic dye allergy status; Y90.9 Presence of alcohol in blood, level not specified
CPT/HCPCS: 36415; 71045; 71250; 74176; 80053; 80306; 80320; 81000; 83690; 84443; 84484; 85027; 85379; 87088; 93005; 96361; 96374; 96375

== ENCOUNTER 2019-04-25 17:13 | Emergency (ER) | payer OTHER ==
[~2019-04-25] VITALS: Ht 165.1 cm; Wt 46.3 kg
[~2019-04-25 17:13] MED LIST changes: +CEPH-507 PO; +HYDR-4226 PO
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
[2019-04-25] MEDS ORDERED: PANTOPRAZOLE 40 MG (PROTONIX) VIAL ONE (17:26)
[2019-04-25] MEDS ORDERED: LORazepam INJ 2 MG/ML (ATIVAN) VIAL IVP ONE ×3 (17:30→21:30)
[2019-04-25] MEDS ORDERED: PANTOPRAZOLE 40 MG (PROTONIX) VIAL IV ONE (17:30)
[2019-04-25] MEDS ORDERED: PROMETHAZINE INJ 25 MG/ML (PHENERGAN) AMP IVP ONE (17:30)
[2019-04-25] MEDS ORDERED: NS IV 1000 ML 1,000 ML IV SCH (17:30)
[2019-04-25 17:37] LABS: HEMATOCRIT 34 % (35-52); HEMOGLOBIN 11.3 G/DL (11.5-16.0); MEAN CORPUSCULAR HEMOGLOBIN 33 PG (25-34); MEAN CORPUSCULAR HGB CONC 33 G/DL (32-36); MEAN CORPUSCULAR VOLUME 100 FL (80-99); MEAN PLATELET VOLUME 10.3 FL (7.4-10.4); NEUTROPHILS % (AUTO) 75 % (42-75); PLATELET COUNT 81 10^3/uL (130-400); RED CELL DISTRIBUTION WIDTH 15.7 % (10.0-14.5); WHITE BLOOD COUNT 8.9 10^3/uL (4.3-11.0)
[2019-04-25 17:38] LABS: BASOPHILS # (AUTO) 0.1 10^3/uL (0.0-0.1); BASOPHILS % (AUTO) 1 % (0-10); EOSINOPHILS % (AUTO) 0 % (0-10); LYMPHOCYTES # (AUTO) 1.3 X 10^3 (1.0-4.0); LYMPHOCYTES % (AUTO) 15 % (12-44); MONOCYTES # (AUTO) 0.9 X 10^3 (0.0-1.0); MONOCYTES % (AUTO) 10 % (0-12); NEUTROPHILS # (AUTO) 6.6 X 10^3 (1.8-7.8)
[2019-04-25 18:06] LABS: BILIRUBIN,TOTAL 1.3 MG/DL (0.1-1.0); BUN/CREATININE RATIO 13; CALCIUM 9.5 MG/DL (8.5-10.1); CARBON DIOXIDE 26 MMOL/L (21-32); CHLORIDE 98 MMOL/L (98-107); CREATININE SERUM 0.64 MG/DL (0.60-1.30); GFR ESTIMATED > 60; GLUCOSE 100 MG/DL (70-105); MAGNESIUM 1.5 MG/DL (1.6-2.4); POTASSIUM 3.9 MMOL/L (3.6-5.0); SODIUM 141 MMOL/L (135-145)
[2019-04-25 18:07] LABS: ALANINE AMINOTRANSFERASE 18 U/L (0-55); ALBUMIN 3.9 GM/DL (3.2-4.5); ALKALINE PHOSPHATASE 118 U/L (40-136); TOTAL PROTEIN 6.8 GM/DL (6.4-8.2)
[2019-04-25 18:08] LABS: LIPASE 1110 U/L (8-78)
[2019-04-25] MEDS ORDERED: ONDANSETRON 4 MG/2 ML (SDV) Z0FRAN IVP ONE (18:30)
[2019-04-25] MEDS ORDERED: fentaNYL INJECTION 100 MCG/2 ML AMP IVP ONE ×2 (18:30→20:00)
[2019-04-25 20:00] LABS: BILIRUBIN,URINE NEGATIVE (NEGATIVE); CLARITY,URINE CLEAR; COLOR,URINE YELLOW; GLUCOSE, URINE (UA) NEGATIVE (NEGATIVE); KETONES,URINE TRACE (NEGATIVE); LEUKOCYTE ESTERASE ,URINE NEGATIVE (NEGATIVE); NITRITE,URINE NEGATIVE (NEGATIVE); PH,URINE 7.5 (5-9); PROTEIN,URINE NEGATIVE (NEGATIVE); WBC,URINE 0-2 /HPF
[2019-04-25 20:01] LABS: BACTERIA,URINE TRACE /HPF; HYALINE CASTS, URINE RARE /LPF
[2019-04-25 20:05] LABS: AMPHETAMINE SCREEN, URINE NEGATIVE (NEGATIVE); BARBITURATE SCREEN URINE NEGATIVE (NEGATIVE); BENZODIAZEPINES SCREEN URINE POSITIVE (NEGATIVE); CANNABINOID SCREEN, URINE NEGATIVE (NEGATIVE); COCAINE SCREEN URINE NEGATIVE (NEGATIVE); METHADONE STAT NEGATIVE (NEGATIVE); METHAMPHETAMINE SCREEN URINE S NEGATIVE (NEGATIVE); OPIATE SCREEN URINE NEGATIVE (NEGATIVE); OXYCODONE STAT NEGATIVE (NEGATIVE); PROPOXYPHENE STAT NEGATIVE (NEGATIVE); TRICYCLIC ANTIDEPRESSANTS SCRE NEGATIVE (NEGATIVE)
[2019-04-25 21:38] VITALS: BP 170/100
== END 2019-04-25 21:38 | disposition short-term general hospital (02) ==
LOC: EDUNIT# 17:13 → ER FS 17:15
DX: F10.230 Alcohol dependence with withdrawal, uncomplicated (principal); K85.90 Acute pancreatitis without necrosis or infection, unspecified; J44.9 Chronic obstructive pulmonary disease, unspecified; I10 Essential (primary) hypertension; F41.9 Anxiety disorder, unspecified; F32.9 Major depressive disorder, single episode, unspecified; Z87.19 Personal history of other diseases of the digestive system; Z87.440 Personal history of urinary (tract) infections; Z88.5 Allergy status to narcotic agent; Z88.2 Allergy status to sulfonamides; Z88.1 Allergy status to other antibiotic agents; Z91.041 Radiographic dye allergy status; Z98.51 Tubal ligation status; Y90.0 Blood alcohol level of less than 20 mg/100 ml
CPT/HCPCS: 36415; 80053; 80306; 80320; 81000; 83690; 83735; 85025

== ENCOUNTER 2019-05-29 13:42 | Emergency (ER) | payer SELFPAY ==
[~2019-05-29] VITALS: Ht 168 cm; Wt 45.7 kg
--- NOTE | 2019-05-29 13:50 | ED General ---
General Stated Complaint: LT ABD/LT BACK PAIN; CHEST PAIN History of Present Illness Date Seen by Provider: May 29, 2019 Time Seen by Provider: 13:50 Initial Comments Patient presenting to emergency department for evaluation of multiple complaints including left upper quadrant abdominal pain that radiates towards her back and involves her low back and upper back. She says this has been present since yesterday and comes and goes and is not worse with exertion movements eating or anything else that she can think of. She denies any shortness of breath diaphoresis nausea vomiting dysuria hematuria vaginal bleeding or vaginal discharge. She says she saw her primary care provider on Sunday and was started on antibiotic for urinary tract infection by her culture came back negative and she received a call today from her provider so she has since stopped her antibiotic. She says that she gets intermittent left-sided chest pain as well. This has been going on since yesterday as well off and on. She says it lasts for several seconds and is sharp and stabbing and is not associated with anything she can think of and does not have any associated symptoms other than the ones listed above. She is a known alcoholic and appeared to be in worse help when I saw her 1 month ago she says she is only currently drinking one wine cooler a day now and she does appear to be in better condition. Allergies and Home Medications Allergies Coded Allergies: tramadol (Unverified Adverse Reaction, Unknown, 01/23/19) Uncoded Allergies: CONTRAST DYE (Adverse Reaction, Unknown, 01/23/19) ERYTHROMYCIN (Adverse Reaction, Unknown, 01/23/19) SULFA (Adverse Reaction, Unknown, 01/23/19) Home Medications Azithromycin 250 Mg Tablet, 250 MG PO UD TAKE 2 TABLETS ON DAY ONE THEN TAKE 1 TABLET DAILY FOR FOUR MORE DAYS Prescribed by: FANTA FARRELL MD on 03/21/19 185 Cephalexin 500 Mg Capsule, 500 MG PO BID Prescribed by: LACEY ROSAS on 04/04/19 402 Hydrocodone/Acetaminophen 1 Each Tablet, 1 TAB PO Q4-6HR Prescribed by: LACEY ROSAS on 04/04/19 3360 Ondansetron 4 Mg Tab.rapdis, 4 MG PO Q6H PRN for NAUSEA/VOMITING-1ST LINE Prescribed by: BRENNAN GOVEA on 03/08/19 0939 [morphine ] , 15 MG PO Q12H PRN for pain Prescribed by: BRENNAN GOVEA on 03/08/19 0939 Patient Home Medication List Home Medication List Reviewed: Yes Review of Systems Review of Systems Constitutional: no symptoms reported EENTM: no symptoms reported Respiratory: no symptoms reported Cardiovascular: chest pain Gastrointestinal: abdominal pain Genitourinary: no symptoms reported Musculoskeletal: back pain Skin: no symptoms reported Psychiatric/Neurological: No Symptoms Reported All Other Systems Reviewed Negative Unless Noted: Yes Past Tpacdps-Tqssbk-Xwsgqh Hx Patient Social History Alcohol Beverage of Choice: Beer, Whiskey Type Used: Cigarettes 2nd Hand Smoke Exposure: No Recent Hopitalizations: No Seasonal Allergies Seasonal Allergies: No Past Medical History Surgeries: Yes (RHINOPLASTY) Tubal Ligation Respiratory: Yes (TOBACCOISM) Asthma, Chronic Bronchitis Cardiac: Yes Hypertension 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 oz. 46.180184op; BMI Method:Stated General Appearance: No Apparent Distress, Chronically ill HEENT: PERRL/EOMI Neck: Supple Respiratory: Chest Non Tender, Lungs Clear, No Respiratory Distress Cardiovascular: Regular Rate, Rhythm Gastrointestinal: Soft, Tenderness (LUQ, no rebound or guarding.) Rectal: Deferred Back: Normal Inspection; No Vertebral Tenderness; Other (paraspinal ttp, diffusely on L T and L spine) Extremity: Normal Capillary Refill, No Pedal Edema Neurologic/Psychiatric: Alert, Oriented x3 Skin: Warm/Dry Progress/Results/Core Measures Suspected Sepsis SIRS Temperature: Pulse: Respiratory Rate: Laboratory Tests 05/29/19 14:00: White Blood Count 7.8 Blood Pressure / Mean: Laboratory Tests 05/29/19 14:00: Creatinine 0.84, Platelet Count 296, Total Bilirubin 0.4 Results/Orders Lab Results Laboratory Tests Test 05/29/19 13:45 05/29/19 14:00 Range/Units Urine Color YELLOW Urine Clarity CLEAR Urine pH 7.0 5-9 Urine Specific [place] 1.020 1.016-1.022 Urine Protein NEGATIVE NEGATIVE Urine Glucose (UA) NEGATIVE NEGATIVE Urine Ketones NEGATIVE NEGATIVE Urine Nitrite NEGATIVE NEGATIVE Urine Bilirubin NEGATIVE NEGATIVE Urine Urobilinogen 0.2 NORMAL MG/DL Urine Leukocyte Esterase 1+ H NEGATIVE Urine RBC (Auto) NEGATIVE NEGATIVE Urine RBC NONE /HPF Urine WBC 0-2 /HPF Urine Squamous Epithelial Cells 2-5 /HPF Urine Crystals NONE /LPF Urine Bacteria NEGATIVE /HPF Urine Casts NONE /LPF Urine Mucus NONE /LPF Urine Culture Indicated NO White Blood Count 7.8 4.3-11.0 10^3/uL Red Blood Count 3.46 L 4.35-5.85 10^6/uL Hemoglobin 11.1 L 11.5-16.0 G/DL Hematocrit 34 L 35-52 % Mean Corpuscular Volume 99 80-99 FL Mean Corpuscular Hemoglobin 32 25-34 PG Mean Corpuscular Hemoglobin Concent 33 32-36 G/DL Red Cell Distribution Width 14.9 H 10.0-14.5 % Platelet Count 296 130-400 10^3/uL Mean Platelet Volume 9.5 7.4-10.4 FL Neutrophils (%) (Auto) 57 42-75 % Lymphocytes (%) (Auto) 27 12-44 % Monocytes (%) (Auto) 11 0-12 % Eosinophils (%) (Auto) 4 0-10 % Basophils (%) (Auto) 1 0-10 % Neutrophils # (Auto) 4.5 1.8-7.8 X 10^3 Lymphocytes # (Auto) 2.1 1.0-4.0 X 10^3 Monocytes # (Auto) 0.9 0.0-1.0 X 10^3 Eosinophils # (Auto) 0.3 0.0-0.3 10^3/uL Basophils # (Auto) 0.1 0.0-0.1 10^3/uL Sodium Level 139 135-145 MMOL/L Potassium Level 3.7 3.6-5.0 MMOL/L Chloride Level 101 98-107 MMOL/L Carbon Dioxide Level 26 21-32 MMOL/L Anion Gap 12 5-14 MMOL/L Blood Urea Nitrogen 6 L 7-18 MG/DL Creatinine 0.84 0.60-1.30 MG/DL Estimat Glomerular Filtration Rate > 60 BUN/Creatinine Ratio 7 Glucose Level 108 H 70-105 MG/DL Calcium Level 9.3 8.5-10.1 MG/DL Corrected Calcium 9.6 8.5-10.1 MG/DL Magnesium Level 1.4 L 1.6-2.4 MG/DL Total Bilirubin 0.4 0.1-1.0 MG/DL Aspartate Amino Transf (AST/SGOT) 22 5-34 U/L Alanine Aminotransferase (ALT/SGPT) 6 0-55 U/L Alkaline Phosphatase 120 40-136 U/L Troponin I < 0.30 <0.30 NG/ML Pro-B-Type Natriuretic Peptide 724.6 H <75.0 PG/ML Total Protein 7.0 6.4-8.2 GM/DL Albumin 3.6 3.2-4.5 GM/DL Lipase 85 H 8-78 U/L My Orders Orders - JOSE JUAN GONZALEZ DO Cbc With Automated Diff (05/29/19 13:55) Comprehensive Metabolic Panel (05/29/19 13:55) Lipase (05/29/19 13:55) Magnesium (05/29/19 13:55) Probnp Fs (05/29/19 13:55) Troponin I (05/29/19 13:55) Ua Culture If Indicated (05/29/19 13:55) Ct Chest/Abdomen/Pelvis Wo (05/29/19 13:55) Antacid Suspension (Mylanta Suspension (05/29/19 14:00) Morphine Injection (Morphine Injection (05/29/19 13:55) Ns Iv 1000 Ml (Sodium Chloride 0.9%) (05/29/19 14:00) Lidocaine 2% Viscous 15 Ml (Xylocaine Vi (05/29/19 14:00) Pantoprazole Injection (Protonix Injecti (05/29/19 14:00) Magnesium 1 Gm/100 Ml Ivpb (Magnesium Gaffney (05/29/19 15:15) Medications Given in ED Current Medications Medications Dose Ordered Sig/Artemio Route Start Time Stop Time Status Last Admin Dose Admin Al Hydrox/Mg Hydrox/Simethicone 30 ml ONCE ONCE PO 05/29/19 14:00 05/29/19 14:01 DC 05/29/19 14:23 30 ML Lidocaine HCl 5 ml ONCE ONCE PO 05/29/19 14:00 05/29/19 14:01 DC 05/29/19 14:23 5 ML Pantoprazole 40 mg ONCE ONCE IV 05/29/19 14:00 05/29/19 14:01 DC 05/29/19 14:22 40 MG Vital Signs/I&O 05/29/19 13:45 Temp 36.8 Pulse 92 Resp 13 B/P (MAP) 138/97 (111) Pulse Ox 98 Capillary Refill : Progress Note : Progress Note Workup is unremarkable for acute process and her symptoms may be related to a gastritis with radiating pain this could be musculoskeletal pain. Her EKG and troponin are negative more than 6 hours out from onset of symptoms. Her pain improved with treatment here and she is in no obvious distress with continued normal vital signs. Given patient appears well with benign workup physical exam and normal vital signs she'll be discharged in stable condition. She was told to try taking Prilosec and using a lidocaine patch. She was told to drink plenty of fluids follow primary care provider on Sunday and come back to the ED sooner with worsening pain fevers vomiting or other general concerns. Patient aware and agreeable with plan and verbalized understanding of the above instructions. Departure Impression Primary Impression: Abdominal pain Qualified Codes: R10.12 - Left upper quadrant pain Additional Impressions: Chest pain Back pain Disposition: HOME, SELF-CARE Condition: Stable Departure-Patient Inst. Referrals: HEBERT MANZANO APRN (PCP) Primary Care Physician [facility] [place] (Family) Primary Care Physician Add. Discharge Instructions: Take 40mg prilosec daily. Use tums and maalox for immediate relief. Soft, liquid diet. Lidocaine patch for back pain. Follow with PCP sunday or sunday. Come back earlier for any concerns. Thank you! Scripts Omeprazole Magnesium (Prilosec Otc) 20 Mg Tablet. 40 MG PO DAILY, #20 TAB Prov: JOSE JUAN GONZALEZ DO 05/29/19 Hydrocodone/Acetaminophen (Craig 5-325 Tablet) 1 Each Tablet 1 TAB PO QHS for Pain MDD 10 TABS for 7 Days, #5 TAB Prov: JOSE JUAN GONZALEZ DO 05/29/19 JOSE JUAN GONZALEZ DO May 29, 2019 13:50
[2019-05-29] MEDS ORDERED: morphine INJ 10 MG/ML 1ML (SYR OR VIAL) IVP STA (13:55)
[2019-05-29] MEDS ORDERED: PANTOPRAZOLE 40 MG (PROTONIX) VIAL IV ONE (14:00)
[2019-05-29] MEDS ORDERED: LIDOCAINE 2% VISCOUS 15 ML UDC PO ONE (14:00)
[2019-05-29] MEDS ORDERED: NS IV 1000 ML 1,000 ML IV SCH (14:00)
[2019-05-29] MEDS ORDERED: ANTACID SUSP 30 ML UDC (MYLANTA) PO ONE (14:00)
[2019-05-29 14:18] LABS: HEMOGLOBIN 11.1 G/DL (11.5-16.0); MEAN CORPUSCULAR HEMOGLOBIN 32 PG (25-34); WHITE BLOOD COUNT 7.8 10^3/uL (4.3-11.0)
[2019-05-29 14:19] LABS: BASOPHILS % (AUTO) 1 % (0-10); EOSINOPHILS # (AUTO) 0.3 10^3/uL (0.0-0.3); EOSINOPHILS % (AUTO) 4 % (0-10); HEMATOCRIT 34 % (35-52); LYMPHOCYTES # (AUTO) 2.1 X 10^3 (1.0-4.0); LYMPHOCYTES % (AUTO) 27 % (12-44); MEAN CORPUSCULAR HGB CONC 33 G/DL (32-36); MEAN CORPUSCULAR VOLUME 99 FL (80-99); MEAN PLATELET VOLUME 9.5 FL (7.4-10.4); MONOCYTES # (AUTO) 0.9 X 10^3 (0.0-1.0); MONOCYTES % (AUTO) 11 % (0-12); NEUTROPHILS # (AUTO) 4.5 X 10^3 (1.8-7.8); NEUTROPHILS % (AUTO) 57 % (42-75); PLATELET COUNT 296 10^3/uL (130-400); RED CELL DISTRIBUTION WIDTH 14.9 % (10.0-14.5)
[2019-05-29 14:20] LABS: BASOPHILS # (AUTO) 0.1 10^3/uL (0.0-0.1)
[2019-05-29 14:28] LABS: BACTERIA,URINE NEGATIVE /HPF; BILIRUBIN,URINE NEGATIVE (NEGATIVE); CLARITY,URINE CLEAR; COLOR,URINE YELLOW; GLUCOSE, URINE (UA) NEGATIVE (NEGATIVE); KETONES,URINE NEGATIVE (NEGATIVE); LEUKOCYTE ESTERASE ,URINE 1+ (NEGATIVE); NITRITE,URINE NEGATIVE (NEGATIVE); PROTEIN,URINE NEGATIVE (NEGATIVE); UROBILINOGEN,URINE 0.2 MG/DL (NORMAL); WBC,URINE 0-2 /HPF
--- NOTE | 2019-05-29 14:35 | Diagnostic Imaging Report ---
PROCEDURE: CT chest, abdomen, and pelvis without contrast. TECHNIQUE: Multiple contiguous axial images were obtained through the chest, abdomen, and pelvis without the use of intravenous contrast. Auto Exposure Controls were utilized during the CT exam to meet ALARA standards for radiation dose reduction. INDICATION: Left upper quadrant abdominal pain as well as intermittent left-sided chest pain for 5 days. Patient has prior history of pancreatitis. Correlation is made with prior CT from 04/04/2019. CT chest: Low-density nodule in the right lobe of the thyroid appears stable when compared with prior exam measuring approximately 12 mm. No axillary lymphadenopathy is identified. Calcified lymph nodes in the left hilum are similar to prior exam. A lymph node in the precarinal region measures 17 mm x 12 mm, similar to prior exam. There are coronary arterial calcifications present. No pericardial or pleural fluid is identified. There are numerous tiny calcified and noncalcified nodules in both lungs. No infiltrates are identified. Bony structures are nonacute. IMPRESSION: Stable noncontrast CT chest exam from 04/04/2019. Pulmonary nodules and mediastinal lymph node appear stable. No new abnormality is detected. CT abdomen and pelvis: No discrete liver mass is identified. The gallbladder is unremarkable. No biliary ductal dilatation is seen. Pancreatic calcifications are again noted consistent with chronic pancreatitis. The spleen is unremarkable. No adrenal mass is detected. No renal calculi or hydronephrosis is identified. Aorta is non-aneurysmal. The small and large bowel loops are normal caliber. No obstruction is seen. There is no ascites. Bladder and uterus are unremarkable. No inflammatory changes in the abdomen or pelvis is seen. IMPRESSION: Overall stable CT abdomen and pelvis when compared with prior exam from 04/04/2019. No acute feature is detected. Dictated by: Dictated on workstation # [id number]
[2019-05-29 14:58] LABS: CHLORIDE 101 MMOL/L (98-107); POTASSIUM 3.7 MMOL/L (3.6-5.0); SODIUM 139 MMOL/L (135-145)
[2019-05-29 14:59] LABS: ALANINE AMINOTRANSFERASE 6 U/L (0-55); ALKALINE PHOSPHATASE 120 U/L (40-136); BILIRUBIN,TOTAL 0.4 MG/DL (0.1-1.0); BUN/CREATININE RATIO 7; CALCIUM 9.3 MG/DL (8.5-10.1); CARBON DIOXIDE 26 MMOL/L (21-32); CREATININE SERUM 0.84 MG/DL (0.60-1.30); GFR ESTIMATED > 60; GLUCOSE 108 MG/DL (70-105); MAGNESIUM 1.4 MG/DL (1.6-2.4)
[2019-05-29 15:00] LABS: ALBUMIN 3.6 GM/DL (3.2-4.5); LIPASE 85 U/L (8-78)
[2019-05-29] MEDS ORDERED: HYDR-4226 PO (15:08)
[2019-05-29] MEDS ORDERED: OMEP20TA33 PO (15:09)
[2019-05-29] MEDS ORDERED: MAGNESIUM 1 GM/100 ML IVPB 100 ML IV ONE (15:15)
[2019-05-29 16:15] VITALS: BP 138/97
== END 2019-05-29 16:17 | disposition home or self-care (01) ==
LOC: EDUNIT# 13:42 → ER FS 13:43
DX: R10.12 Left upper quadrant pain (principal); R07.9 Chest pain, unspecified; M54.9 Dorsalgia, unspecified; I10 Essential (primary) hypertension; J45.909 Unspecified asthma, uncomplicated; F41.9 Anxiety disorder, unspecified; F32.9 Major depressive disorder, single episode, unspecified; Z87.440 Personal history of urinary (tract) infections; Z87.19 Personal history of other diseases of the digestive system; Z88.5 Allergy status to narcotic agent; Z88.1 Allergy status to other antibiotic agents; Z88.2 Allergy status to sulfonamides; Z91.041 Radiographic dye allergy status; Z98.51 Tubal ligation status
CPT/HCPCS: 36415; 71250; 74176; 80053; 81000; 83690; 83735; 83880; 84484; 85025